=== PATIENT | male | born 1955 | race Caucasian/White ===

== ENCOUNTER 2016-07-24 08:15 | Inpatient (IN) | payer OTHER ==
[2016-07-02 12:43] VITALS: BMI 28.0
--- NOTE | 2016-07-02 13:05 | PAT Medication Instructions ---
Service Date Jul 02, 2016. Current Home Medication List Acetaminophen (Tylenol), 650 MG PO PRN PRN Cholecalciferol (Vitamin D), 1,000 INTER.UNIT PO QAM Ibuprofen (Motrin), 600 MG PO Q6H PRN for Pain Melatonin (Melatonin Maximum Strengt), 1 TAB PO HS Oxymetazoline Hcl (Afrin 0.05% Nasal Tobias), 1 BTL NA HS Tramadol (Ultram), 50 MG PO Q8H PRN for Pain Medication Instructions For Your Scheduled Surgery Ibuprofen (Motrin), 600 MG PO Q6H PRN for Pain (check with surgeon for instructions) - Hold the following medications the morning of surgery: Cholecalciferol (Vitamin D), 1,000 INTER.UNIT PO QAM Acetaminophen (Tylenol), 650 MG PO PRN PRN - Take the following medications the morning of surgery with a sip of water: Tramadol (Ultram), 50 MG PO Q8H PRN for Pain (okay to take up to 4 hours prior to surgery if needed) - Take the following medications as scheduled the night before surgery: Oxymetazoline Hcl (Afrin 0.05% Nasal Tobias), 1 BTL NA HS Melatonin (Melatonin Maximum Strengt), 1 TAB PO HS Acetaminophen (Tylenol), 650 MG PO PRN PRN Tramadol (Ultram), 50 MG PO Q8H PRN for Pain If you have any questions please call us at [phone] (Madonna Goldsmith PA-C) or [phone] or [phone]
[2016-07-02 13:26] LABS: BASO % 0.6 %; BASO ABS # 0.03 K/uL (0-0.2); COMPLETE YES; HEMATOCRIT 40.4 % (42-52); IG% 0.4 %; LYMPH % 29.1 %; LYMPH ABS # 1.58 K/uL (1.2-3.4); MEAN CELL VOLUME 88.8 fL (80-100); MEAN CORPUSCULAR HEMOGLOBIN 31.2 pg (25-34); MEAN CORPUSCULAR HGB CONC 35.1 g/dl (32-36); MEAN PLATELET VOLUME 9.3 fL (7.4-10.4); MONO % 6.3 %; NEUT % 61.6 %; PLATELET COUNT 222 K/uL (130-400); RED BLOOD COUNT 4.55 M/uL (4.7-6.1); WHITE BLOOD COUNT 5.43 K/uL (4.8-10.8)
[2016-07-02 13:37] LABS: PROTHROMBIN TIME (PATIENT) 10.4 SECONDS (9.0-12.0)
[2016-07-02 13:50] LABS: BUN/CREATININE RATIO 17.5 (10-20); CALCIUM 8.8 mg/dl (8.5-10.1); CREATININE 0.81 mg/dl (0.60-1.40); POTASSIUM 3.9 mmol/L (3.5-5.1)
[2016-07-03 05:46] LABS: ESTIMATED AVERAGE GLUCOSE 105 mg/dl; HA1C FLAG Normal (Normal)
--- NOTE | 2016-07-23 13:30 | HISTORY & PHYSICAL EXAMINATION ---
DATE OF ADMISSION: 07/24/2016 CHIEF COMPLAINT: Right hip pain. HISTORY OF PRESENT ILLNESS: The patient is a 60-year-old male with known osteoarthritis about his right hip. He had a previous successful left total hip arthroplasty approximately 6 years ago. He now has ongoing pain and disability with the right hip. He has pain with prolonged weightbearing and standing activities. He has difficulty with any kneeling, bending, or squatting activities. He now desires to proceed with right total hip arthroplasty. PAST MEDICAL HISTORY: Denies. PAST SURGICAL HISTORY: Left hip as above, bilateral carpal tunnel release. MEDICATIONS: None. ALLERGIES: CODEINE WHICH CAUSES ITCHING. SOCIAL HISTORY: He states a [id number] smoking history. REVIEW OF SYSTEMS: Noncontributory. PHYSICAL EXAMINATION: GENERAL: Well-nourished, well-developed elderly male who appears stated age. HEAD, EYES, EARS, NOSE, AND THROAT: Normocephalic, atraumatic, extraocular movements intact. Oropharynx pink and moist. NECK: Supple without adenopathy. LUNGS: Clear to auscultation bilaterally. HEART: Regular rate and rhythm. ABDOMEN: Soft, nontender, nondistended. EXTREMITIES: The upper extremity within normal limits. The right hip demonstrates limited range of motion. There is limitation of active and passive internal/external rotation with pain at end range. X-RAYS: X-rays were reviewed. He has severe osteoarthritis about the right hip with complete loss of the joint space. There is osteophyte formation about the femoral head and acetabulum. There is deformation of the femoral head. ASSESSMENT: Right hip degenerative joint disease. PLAN: Risks versus benefits were discussed. Consent was obtained. The patient's primary care physician is Dr. Khoury from the [facility]. Will proceed with right total hip arthroplasty upon preoperative workup and medical clearance. ARTURO
[2016-07-24] VITALS (8 sets, daily range): BP systolic 109–144; BP diastolic 52–78; PULSE 62–80; TEMP 36.3–37.1; O2SAT 90–98; Ht 185.4 cm; Wt 97.6 kg
[~2016-07-24] VITALS: Ht 185.4 cm; Wt 97.6 kg
[~2016-07-24 08:15] MED LIST: ACET-1311 PO; ACETAMINOPHEN 500 MG TAB PO SCH; AFRINWC; BUPIVACAINE 0.5 % 5 MG/1 ML PF 10ML VIAL ONE; CEFAZOLIN 2000 MG/60 ML D5W 60 ML IV SCH; CHOL100010 PO; CeleBREX 200 MG CAP PO SCH; DEXAMETHASONE 4 MG TAB PO SCH; GABAPENTIN 300 MG CAP PO SCH; IBUP600T44 PO; LACTATED RINGER'S 1000ML IV SCH; MELATAB2 PO; METOCLOPRAMIDE HCL 10 MG TAB PO SCH; ROPIVACAINE 5MG/ML 30 ML 150 MG, BUPIVACAINE/EPINEPHR 0.5% MPF 30 ML, KETOROLAC TROMETH... INFIL SCH; TRAM-10 PO
[2016-07-24] MEDS ORDERED: NCDT21X TOP (08:37)
--- NOTE | 2016-07-24 08:51 | History & Physical Bridge Note ---
H&P Re-Evaluation Bridge Note: I have examined the patient, reviewed the History & Physical and in the interval since the performance of the History & Physical I have noted the following changes of clinical significance: No changes noted
[2016-07-24] MEDS ORDERED: MEPERIDINE HCL 25 MG/ML CARP IV PRN (09:00)
[2016-07-24] MEDS ORDERED: ONDANSETRON INJ 2 MG/ML 2 ML VIAL IV PRN ×2 (09:00→11:30)
[2016-07-24] MEDS ORDERED: EpHEDrine SULFATE INJ 50 MG/ML AMP IV PRN (09:00)
[2016-07-24] MEDS ORDERED: LABETALOL HCL IV 5 MG/ML 20ML IV PRN (09:00)
[2016-07-24] MEDS ORDERED: FLUMAZENIL 0.1 MG/1 ML 10 ML VIAL IV PRN (09:00)
[2016-07-24] MEDS ORDERED: ATROPINE SULFATE 0.1 MG/ML 5ML SYR IV PRN (09:00)
[2016-07-24] MEDS ORDERED: NALOXONE HCL 0.4 MG/1 ML VIAL/CARP IV PRN (09:00)
[2016-07-24] MEDS ORDERED: PHENYLEPHRINE 100MCG/ML 5ML SYR IV PRN (09:00)
[2016-07-24] MEDS ORDERED: FENTANYL CITRATE INJ 50 MCG/1 ML 2 ML VIAL IV PRN (09:00)
[2016-07-24] MEDS ORDERED: MIDAZOLAM HCL 1 MG/ML 2ML VIAL ONE (09:08)
[2016-07-24] MEDS ORDERED: PROPOFOL IV EMULSION 10 MG/ML 20 ML VIAL IV ONE (09:08)
[2016-07-24] MEDS ORDERED: LIDOCAINE HCL 2% 2 ML VIAL (20MG/ML) ONE (09:08)
[2016-07-24] MEDS ORDERED: POVIDONE-IODINE OP SOLN 30 ML BTL ONE (09:31)
[2016-07-24] MEDS ORDERED: BACITRACIN 50000 UNIT VIAL ONE (09:31)
[2016-07-24] MEDS ORDERED: EpHEDrine SULFATE 50MG/5ML SYR ONE (10:03)
--- NOTE | 2016-07-24 10:47 | [facility] Post Operative Brief Note ---
Immediate Operative Summary Operative Date Jul 24, 2016. Pre-Operative Diagnosis Right Hip Degenerative Joint Disease Post-Operative Diagnosis Same as Preop Procedure(s) Performed Right Total Hip Arthroplasty Uncemented Surgeon Dr. Pimentel Care Technician Surgeon(s) Randell Gutiérrez PA-C Estimated Blood Loss 100cc Findings severe oa Specimens A. Right Femoral Head Disposition Recovery Room / PACU
--- NOTE | 2016-07-24 10:55 | OPERATIVE REPORT ---
DATE OF OPERATION: 07/24/2016 PREOPERATIVE DIAGNOSIS: Osteoarthritis right hip. POSTOPERATIVE DIAGNOSIS: Osteoarthritis right hip. PROCEDURE: Right total hip arthroplasty. SURGEON: Dr. Pimentel. EXTRUDER TENDER: Randell Gutiérrez PA-C. ANESTHESIA: Spinal. COMPLICATIONS: None. OPERATION AND FINDINGS: PROCEDURE: Following induction of adequate spinal anesthesia, the patient was placed in left lateral decubitus position and right Reyna-Langenbeck incision was made. Subcutaneous tissue was sharply dissected. Electrocautery used for hemostasis. The fascia was incised throughout the length of the wound and a bourne scissor placed beneath the short external rotators. The pyriformis was tagged with #1 Vicryl. The short external rotators were divided from the posterior aspect of the femur using electrocautery. These were swept posteriorly. A T-capsulotomy incision was made and the hip was dislocated using a combination of flexion, adduction, and internal rotation. Exposure of the femoral neck with old-style Hohmann and a blunt Hohmann was carried out and a femoral rasp was utilized as a guide for making the appropriate level femoral neck cut. This bone fragment was removed and reserved on the back table. Next, attention was turned to the acetabulum where bone hook was used to retract the femur while the offset retractors were placed anterior and posteriorly. A double-angled Hohmann was placed in superior and anterior position exposing the acetabulum nicely. Acetabular labrum as well as posterior capsule elements were removed using a long knife and a long pickup. Fovea centralis was cleared of all soft tissue. Sequential reamings were carried up to a size 58 and decision was made to proceed with impaction of a 58 trabecular metal cup. This was impacted and held using a single 35 mm bone screw. The acetabular liner was placed with 15 of elevated posterior wall in the superior and posterior position. Next, attention was turned to the femoral portion of the case where a Bovie and pickup was used to further clear short external rotators from their insertion on the femur. Box osteotome was used to gain access to the femoral canal and the T-handled rasp and a rattail rasp were used to further open and lateral the canal. Sequentially raspings were carried up to a size 6 which gave good fit and fill of the proximal femur. A trial reduction was carried out and 6 offset femoral neck component was chosen as the size to be used. A -5 x 36 mm ceramic femoral head was impacted into position, +0 head was utilized. The trial reduction was stable in all degrees of rotation with no [id number] impingement. The hip was dislocated. The trial components were removed and the final femoral stem, neck, and femoral head combination were assembled on the back table and impacted into position. Hip was relocated. Range of motion checked once again successful and the wound was irrigated. The pyriformis repaired to the greater trochanter using #1 Vicryl [id number] suture. A Hemovac drain was placed and the fascia was closed using #1 Vicryl, subcutaneous tissue was closed using 0 Dexon, and skin was closed with brad. Sterile dressing of Adaptic, 4 x 4's, ABDs, and foam tape was applied. The patient tolerated the procedure well. Recovery room stable. Due to the complex nature of the procedure, the entire surgery was performed with the operational assistance of Randell Gutiérrez PA-C. The bookkeeping assistant, under direct supervision, was involved in the actual performance of all aspects of the surgical procedure including hemostasis, tissue retraction and incision, instrument management, patient positioning, and wound closure. I attest to the content of the Intraoperative Record and any orders documented therein. Any exceptions are noted below. ARTURO
[2016-07-24] MEDS ORDERED: FENTANYL CITRATE INJ 50 MCG/1 ML 2 ML VIAL ONE (11:10)
[2016-07-24] MEDS ORDERED: ALUMINUM/MAGNESIUM/SIMETH (MAALOX MAX) 30 ML UDC PO PRN (11:30)
[2016-07-24] MEDS ORDERED: ZOLPIDEM TARTRATE 5 MG TAB PO PRN (11:30)
[2016-07-24] MEDS ORDERED: MoRPHine SULFATE 2 MG/ML CARP IV PRN (11:30)
[2016-07-24] MEDS ORDERED: BISACODYL 10 MG SUPP PR PRN (11:30)
[2016-07-24] MEDS ORDERED: TAMSULOSIN HCL 0.4 MG CAP PO PRN (11:30)
[2016-07-24] MEDS ORDERED: DiphenhydrAMINE HCL 50 MG/ML VIAL IV PRN (11:30)
[2016-07-24] MEDS ORDERED: TRAMADOL HCL 50 MG TAB PO PRN (11:30)
[2016-07-24] MEDS ORDERED: MAGNESIUM HYDROXIDE SUSP 30 ML UDC PO PRN (11:30)
--- NOTE | 2016-07-24 11:44 | DIAGNOSTIC IMAGING REPORT ---
RIGHT PELVIS/UNILATERAL HIP 1 VIEW CLINICAL HISTORY: IN PACU - A/P PELVIS and LATERAL HIP INCLUDING ALL OF IMPLANT Right postoperative evaluation COMPARISON: None. DISCUSSION: Status post total right hip replacement. Good contact between prosthetic and underlying bone. Pre-existing total left hip prosthetic. Expected soft tissue postoperative change IMPRESSION: Anatomic alignment status post total right hip replacement Electronically signed by: Jesus Gorman M.D. 07/24/2016 11:43 AM Dictated Date/Time: 07/24/2016 11:42 AM
--- NOTE | 2016-07-24 12:03 | Anesthesiology Progress Note ---
Anesthesia Post Op Note Date & Time Jul 24, 2016 at 12:04 Vital Signs Pain Intensity: 0 Vital Signs Past 12 Hours Date Time Temp Pulse Resp B/P Pulse Ox O2 Delivery O2 Flow Rate FiO2 07/24/16 11:55 36.5 60 16 104/61 95 Nasal Cannula 3 07/24/16 11:40 36.5 58 16 105/56 95 Nasal Cannula 3 07/24/16 11:30 56 16 107/58 95 Nasal Cannula 3 07/24/16 11:20 57 16 98/61 95 Nasal Cannula 3 07/24/16 11:18 36.2 59 16 102/69 97 Nasal Cannula 3 07/24/16 08:30 36.9 64 20 123/76 97 Room Air Notes Mental Status: alert / awake / arousable, participated in evaluation Pt Amnestic to Procedure: Yes Nausea / Vomiting: adequately controlled Pain: adequately controlled Airway Patency, RR, SpO2: stable & adequate BP & HR: stable & adequate Hydration State: stable & adequate Neuraxial Anesthesia: was administered, sensory block is resolving Anesthetic Complications: no major complications apparent
[2016-07-24] MEDS ORDERED: MoRPHine SULFATE 4 MG/ML 1 ML CARP\\VIAL IV PRN (12:30)
[2016-07-24] MEDS ORDERED: MoRPHine SULFATE 10 MG/ML CARP/VIAL IV PRN (12:30)
[2016-07-24] MEDS: D5W AND 1/2NSS + 20MEQ KCL 1,000 ML IV SCH ×2 (12:31→21:57)
[2016-07-24] MEDS: TRANEXAMIC ACID INJ 1,000 MG in SODIUM CHLORIDE 0.9% 100ML 100 ML IV SCH ×2 (13:23→13:26)
[2016-07-24] MEDS: FERROUS GLUCONATE 324 MG TAB PO SCH ×2 (13:24→17:22)
[2016-07-24] MEDS: KETOROLAC TROMETHAMINE 30 MG/ML VIAL IV. SCH ×2 (13:25→19:42)
[2016-07-24] MEDS: OXYCODONE HCL IR 5 MG TAB (IMMEDIATE RELEASE) PO PRN (14:21)
[2016-07-24] MEDS: NICOTINE 21 MG/24 HR TDSY TD SCH (15:24)
[2016-07-24] MEDS: ACETAMINOPHEN 500 MG TAB PO SCH ×2 (15:24→21:57)
[2016-07-24] MEDS: CEFAZOLIN IV 2,000 MG in DEXTROSE 5% 50ML 50 ML IV SCH (17:22)
[2016-07-24] MEDS: SENNA 8.6 MG TAB PO SCH (20:46)
[2016-07-24] MEDS: DOCUSATE SODIUM 100 MG CAP PO SCH (20:46)
[2016-07-24] MEDS: ASPIRIN 81 MG ECTAB PO SCH (20:46)
[2016-07-25] VITALS (7 sets, daily range): BP systolic 105–140; BP diastolic 58–78; PULSE 65–88; TEMP 36.5–37.1; O2SAT 95–98
[2016-07-25] MEDS: OXYCODONE HCL IR 5 MG TAB (IMMEDIATE RELEASE) PO PRN ×3 (00:02→19:28)
[2016-07-25] MEDS: CEFAZOLIN IV 2,000 MG in DEXTROSE 5% 50ML 50 ML IV SCH (02:45)
[2016-07-25] MEDS: KETOROLAC TROMETHAMINE 30 MG/ML VIAL IV. SCH ×2 (02:45→08:06)
[2016-07-25] MEDS ORDERED: TRANEXAMIC ACID INJ 1,000 MG in SODIUM CHLORIDE 0.9% 100ML 100 ML IV SCH (06:00)
[2016-07-25] MEDS: ACETAMINOPHEN 500 MG TAB PO SCH ×3 (06:04→21:21)
[2016-07-25 06:10] LABS: BASO % 0.1 %; BASO ABS # 0.01 K/uL (0-0.2); COMPLETE YES; EOS % 0.3 %; HEMATOCRIT 34.4 % (42-52); IG% 0.3 %; LYMPH % 12.1 %; LYMPH ABS # 1.35 K/uL (1.2-3.4); MEAN CELL VOLUME 89.6 fL (80-100); MEAN CORPUSCULAR HEMOGLOBIN 30.7 pg (25-34); MEAN CORPUSCULAR HGB CONC 34.3 g/dl (32-36); MEAN PLATELET VOLUME 9.7 fL (7.4-10.4); MONO % 7.2 %; PLATELET COUNT 197 K/uL (130-400); RED BLOOD COUNT 3.84 M/uL (4.7-6.1); WHITE BLOOD COUNT 11.19 K/uL (4.8-10.8)
[2016-07-25 06:35] LABS: BUN/CREATININE RATIO 16.6 (10-20); CALCIUM 8.5 mg/dl (8.5-10.1); CREATININE 0.74 mg/dl (0.60-1.40); POTASSIUM 4.3 mmol/L (3.5-5.1)
--- NOTE | 2016-07-25 07:40 | Orthopedic Progress Note ---
Orthopedic Progress Note Date of Service Jul 25, 2016. Subjective Post OP Day: 1 Reports: feeling well, Denies: SOB, calf pain, chest pain, light headedness, nausea / vomiting Objective calves soft nontender, N/V intact, hip located, dressing C/D/I, A&O x3, toes mobile, hemovac drainage (50ml latest shift; 275ml to date) Date Time Temp Pulse Resp B/P Pulse Ox O2 Delivery O2 Flow Rate FiO2 07/25/16 02:50 36.5 88 16 108/58 96 Room Air 07/24/16 23:55 Room Air 07/24/16 22:50 36.3 70 16 117/64 97 Room Air 07/24/16 19:45 Room Air 07/24/16 19:03 37.1 80 20 144/78 96 Room Air 07/24/16 15:09 36.8 66 16 121/70 98 Nasal Cannula 3.0 07/24/16 14:10 36.6 65 17 116/67 98 Nasal Cannula 2.0 07/24/16 13:30 Room Air 07/24/16 13:11 36.9 66 18 119/70 90 Nasal Cannula 3.0 07/24/16 12:40 67 16 127/69 97 Nasal Cannula 3.0 07/24/16 12:10 Nasal Cannula 3.0 07/24/16 12:10 36.4 62 16 109/52 98 Nasal Cannula 3.0 07/24/16 11:55 36.5 60 16 104/61 95 Nasal Cannula 3 07/24/16 11:40 36.5 58 16 105/56 95 Nasal Cannula 3 07/24/16 11:30 56 16 107/58 95 Nasal Cannula 3 07/24/16 11:20 57 16 98/61 95 Nasal Cannula 3 07/24/16 11:18 36.2 59 16 102/69 97 Nasal Cannula 3 07/24/16 08:30 36.9 64 20 123/76 97 Room Air Laboratory Results 24 Hours: Test 07/25/16 05:46 White Blood Count 11.19 K/uL Red Blood Count 3.84 M/uL Hemoglobin 11.8 g/dL Hematocrit 34.4 % Mean Corpuscular Volume 89.6 fL Mean Corpuscular Hemoglobin 30.7 pg Mean Corpuscular Hemoglobin Concent 34.3 g/dl Platelet Count 197 K/uL Mean Platelet Volume 9.7 fL Neutrophils (%) (Auto) 80.0 % Lymphocytes (%) (Auto) 12.1 % Monocytes (%) (Auto) 7.2 % Eosinophils (%) (Auto) 0.3 % Basophils (%) (Auto) 0.1 % Neutrophils # (Auto) 8.96 K/uL Lymphocytes # (Auto) 1.35 K/uL Monocytes # (Auto) 0.81 K/uL Eosinophils # (Auto) 0.03 K/uL Basophils # (Auto) 0.01 K/uL Assessment & Plan Assessment: POD 1 s/p Right COURTNEY Plan: PT/OT Planning for DC to home tomorrow Inhouse Planning Pain Management: Toradol, Ultram, Morphine, PO Tylenol, Oxy IR DVT Prophylaxis: TEDs, SCDs, ASA
--- NOTE | 2016-07-25 07:57 | Anesthesiology Progress Note ---
Anesthesia Post Op Note Date & Time Jul 25, 2016 at 07:57 Vital Signs Pain Intensity: 6.0 Vital Signs Past 12 Hours Date Time Temp Pulse Resp B/P Pulse Ox O2 Delivery O2 Flow Rate FiO2 07/25/16 02:50 36.5 88 16 108/58 96 Room Air 07/24/16 23:55 Room Air 07/24/16 22:50 36.3 70 16 117/64 97 Room Air Notes Mental Status: alert / awake / arousable, participated in evaluation Pt Amnestic to Procedure: Yes Nausea / Vomiting: adequately controlled Pain: adequately controlled Airway Patency, RR, SpO2: stable & adequate BP & HR: stable & adequate Hydration State: stable & adequate Neuraxial Anesthesia: sensory block resolved Anesthetic Complications: no major complications apparent
[2016-07-25] MEDS: FERROUS GLUCONATE 324 MG TAB PO SCH ×3 (08:04→17:55)
[2016-07-25] MEDS: MULTIVITAMIN TAB PO SCH (08:04)
[2016-07-25] MEDS: ASPIRIN 81 MG ECTAB PO SCH ×2 (08:04→21:20)
[2016-07-25] MEDS: DOCUSATE SODIUM 100 MG CAP PO SCH ×2 (08:04→21:20)
[2016-07-25] MEDS: NICOTINE 21 MG/24 HR TDSY TD SCH (08:05)
[2016-07-25] MEDS: PANTOprazole SOD 40 MG TAB PO SCH (08:06)
[2016-07-25] MEDS: D5W AND 1/2NSS + 20MEQ KCL 1,000 ML IV SCH (08:06)
[2016-07-25] MEDS: SENNA 8.6 MG TAB PO SCH (21:20)
[2016-07-26] MEDS: OXYCODONE HCL IR 5 MG TAB (IMMEDIATE RELEASE) PO PRN ×3 (00:04→10:46)
[2016-07-26 03:15] VITALS: BP 118/72; PULSE 65; TEMP 36.8; O2SAT 97
[2016-07-26] MEDS: ACETAMINOPHEN 500 MG TAB PO SCH (05:51)
[2016-07-26 07:00] VITALS: BP 118/65; PULSE 77; TEMP 36.7; O2SAT 96
[2016-07-26 07:50] VITALS: BP 126/78; PULSE 72; TEMP 37.2; O2SAT 96
[2016-07-26] MEDS: ASPIRIN 81 MG ECTAB PO SCH (08:05)
[2016-07-26] MEDS: DOCUSATE SODIUM 100 MG CAP PO SCH (08:05)
[2016-07-26] MEDS: PANTOprazole SOD 40 MG TAB PO SCH (08:05)
[2016-07-26] MEDS: MULTIVITAMIN TAB PO SCH (08:05)
[2016-07-26] MEDS: FERROUS GLUCONATE 324 MG TAB PO SCH ×2 (08:05→11:59)
[2016-07-26] MEDS: NICOTINE 21 MG/24 HR TDSY TD SCH (08:06)
[2016-07-26 09:08] VITALS: O2SAT 96
--- NOTE | 2016-07-26 10:03 | Orthopedic Progress Note ---
Orthopedic Progress Note Date of Service Jul 26, 2016. Subjective Post OP Day: 2 Reports: feeling well, pain controlled w PO medications, Denies: SOB, calf pain , chest pain, complaints, light headedness, nausea / vomiting Objective calves soft nontender, N/V intact, hip located, capillary refill less than 2 sec., dressing C/D/I (Silverlon dressing in place. Clean and dry.), A&O x3, toes mobile Date Time Temp Pulse Resp B/P Pulse Ox O2 Delivery O2 Flow Rate FiO2 07/26/16 09:08 96 Room Air 07/26/16 07:50 37.2 72 16 126/78 96 Room Air 07/26/16 07:10 Room Air 07/26/16 07:00 36.7 77 18 118/65 96 Room Air 07/26/16 03:15 36.8 65 18 118/72 97 Room Air 07/25/16 23:55 Room Air 07/25/16 23:02 36.8 65 17 105/61 96 Room Air 07/25/16 20:19 36.9 69 16 128/73 95 Room Air 07/25/16 16:20 Room Air 07/25/16 15:04 37.1 69 16 119/72 98 Room Air 07/25/16 11:58 36.5 70 16 140/78 97 Room Air Assessment & Plan Assessment: POD 2 s/p Right COURTNEY Plan: PT/OT Planning for DC to home today Inhouse Planning Pain Management: Toradol, Ultram, Morphine, PO Tylenol, Oxy IR DVT Prophylaxis: TEDs, SCDs, ASA Discharge Planning Discharge Planning: home with home health Pain Management: Oxycontin, PO Tylenol, Oxy IR DVT Prophylaxis: TEDs, ASA
[2016-07-26] MEDS ORDERED: CLB200 PO (10:07)
[2016-07-26] MEDS ORDERED: ACET-1138 PO (10:07)
[2016-07-26] MEDS ORDERED: ASPEC81 PO (10:07)
[2016-07-26] MEDS ORDERED: OXYSR10 PO (10:07)
[2016-07-26] MEDS ORDERED: ONDA8TAB6 PO (10:07)
[2016-07-26] MEDS ORDERED: RXC5 PO (10:07)
--- NOTE | 2016-07-26 10:09 | Discharge Instructions ---
Discharge Instructions Date of Service Jul 26, 2016. Admission Reason for Admission: Right Hip Osteoarthritis Discharge Discharge Diagnosis / Problem: right hip osteoarthritis Discharge Goals Goal(s): Decrease discomfort, Improve function Activity Recommendations Activity Limitations: as noted below Lifting Limitations: until after follow-up appointment Exercise/Sports Limitations: until after follow-up appointment May Resume Sexual Activity: when tolerated Shower/Bathe: keep incision dry (Keep Silverlon in place for 7 days) Driving or Machine Use: When cleared by Dr. Pimentel's office. Weightbearing Status: Right weightbearing (as tolerated) . Instructions / Follow-Up Instructions / Follow-Up ACTIVITY RECOMMENDATIONS: SELF CARE INSTRUCTIONS AFTER TOTAL HIP REPLACEMENT Until the incision and soft tissues around your hip have healed, there is a possibility that the hip prosthesis could dislocate. A. Observe the following precautions to prevent dislocation: 1. Don't bend your hip greater than 90 degrees. 2. Avoid crossing your legs or ankles while standing or lying. 3. Sit with your feet placed 6 inches apart. 4. When sitting, keep your knees below your hips. Sit on a firm surface, avoid deep, soft chairs and couches. Use an elevated toilet seat in the bathroom. 5. Don't bend over at the waist. Use a long handled shoehorn and a sock aid to help you put on your shoes and socks. A pigment pumper can help you pickling machine operator objects that are too high or too low to reach. 6. Keep car riding to a minimum for at least one month after surgery. B. Your balance may be shaky for a while. Use crutches or a walker until directed by your doctor. C. Use hand rails when walking on stairs. D. Wear low heeled shoes with non-slip soles. E. Be sure that your floors are free of things that could trip you - throw rugs , electrical cords, small objects. Avoid wet and waxed floors, especially with crutches and canes. F. Try to walk several times a day with rest periods between. G. Continue with all the exercises taught to you in the hospital. Again, make walking a part of your daily routine. H. It is okay to shower if minimal to no drainage from incision. No baths. Do not soak wound. I. Physical Therapy as instructed by your Physician. Chad Allan- This is a large adhesive bandage that contains silver ions. This helps your incision heal by fighting off bacteria and protecting it from the outside environment. You are permitted to shower with this dressing. This will remain on your incision for 7 days and then should be removed. Some visible blood or drainage through the dressing window is normal. If there is significant drainage or leaking noted before the 7 days notify your doctor's office immediately. Once removed, keep incision clean and dry. If there is any drainage or redness noted, please call your surgeon. SPECIAL CARE INSTRUCTIONS: VERY IMPORTANT TO READ AND REVIEW A. You may still be at risk for phlebitis and blood clots. 1. Wear surgical stockings (BIBIANA hose) for one month, 20 hours daily, after surgery to improve circulation and reduce swelling. 2. Take Coumadin, Xarelto, Lovenox or Aspirin (blood thinning medications), as directed by your doctor. 3. Have a pro-time (blood test) drawn according to your doctor's instructions. B. We encourage and will assist you in choosing a home-health agency of your choice. Home health nurses and therapists will monitor your temperature, wound healing and progress in exercise and walking. Home health nurses may also draw the blood for the pro-time test. They may instruct you in decreasing or increasing the amount of Coumadin you take. C. You must take antibiotics before having dental work, bladder, bowel and other surgery. Your doctor will provide you with a permanent card to carry describing precautions. D. Call [facility] if you have a temperature of 101 or greater, redness or swelling around the incision, cloudy drainage from incision, or sudden increase in pain in your hip, not relieved by your regular pain medication. E. Please call the office at if you have any concerns or questions about your operation or recovery. FOLLOW UP VISIT: If appointment is not already scheduled: Please call [facility] to make a follow-up appointment for one month after your surgery at . Current Hospital Diet Patient's current hospital diet: Regular Diet Discharge Diet Recommended Diet: Regular Diet Procedures Procedures Performed: Right Total Hip Arthroplasty Uncemented Pending Studies Studies pending at discharge: no Laboratory Results Hemoglobin A1c Test 07/02/16 13:14 Range/Units Estimated Average Glucose 105 mg/dl Hemoglobin A1c 5.3 4.5-5.6 % Medical Emergencies . Who to Call and When: Medical Emergencies: If at any time you feel your situation is an emergency, please call 911 immediately. . Non-Emergent Contact Non-Emergency issues call your: Surgeon Call Non-Emergent contact if: temperature is above 101, your pain is not controlled, your pain is worsening, wound has increased drainage, wound has increased redness, wound has increased pain . "Provider Documentation" section prepared by Murphy Gregorio. VTE Core Measure Inpt VTE Proph given/why not?: Other Anticoagulation (Aspirin 81 mg every 12 hours for 30 days), T.E.D. Stockings
[2016-07-26 11:49] VITALS: BP 122/78; PULSE 77; TEMP 36.7; O2SAT 96
--- NOTE | 2016-07-30 10:54 | DISCHARGE SUMMARY ---
DISCHARGE DIAGNOSIS: Degenerative joint disease, right hip. CONSULTS: None. COMPLICATIONS: None. PROCEDURES: Right total hip arthroplasty performed by Dr. Pimentel on 07/24/2016. BRIEF HISTORY: As dictated in history and physical. HOSPITAL SUMMARY: The patient was admitted on the above-noted date and had the above-noted surgery performed which he tolerated well. On the first postoperative day, he was feeling well and had no complaints. Calves were soft, nontender. Neurovascularly intact. Hip was located. Dressings clean, dry and intact. Toes were mobile. He was started on physical therapy protocol and continued on DVT prophylaxis and pain management. Vital signs were stable. He was afebrile. Hemoglobin was 11.8. By his second postoperative day, he was feeling well, pain was controlled, and calves were soft and nontender. Dressings clean, dry and intact. Toes were mobile. Neurovascular intact. Hip was located. Vital signs were stable. He was afebrile. He was progressing well with his physical therapy and it was felt he could be discharged to home. For further review, please see chart. LABORATORY AND X-RAY DATA: As per chart. DISCHARGE INSTRUCTIONS: The patient was discharged to home in satisfactory condition on 07/26/2016. DIET: Regular. ACTIVITY: Weightbearing as tolerated right lower extremity. Follow COURTNEY instruction sheets and special care instructions as noted. Follow up with Dr. Pimentel in 2 weeks. The patient to call for appointment if one has not been made for you. DISCHARGE MEDICATIONS: Acetaminophen 1000 mg p.o. q. 8 hours, aspirin 81 mg p.o. b.i.d., Celebrex 200 mg p.o. q. 12 hours, Zofran 8 mg p.o. q. 8 hours p.r.n., oxycodone 5-10 mg p.o. q. 4 hours p.r.n., OxyContin 10 mg p.o. q.12 hours. Resume taking vitamin D 1000 International Units p.o. q.a.m., melatonin 1 tab p.o. at bedtime, nicotine patch 1 patch daily 21 mg, Afrin 0.05% nasal spray p.r.n. Stop taking 650 mg dose of acetaminophen. Stop taking ibuprofen and tramadol.
== END 2016-07-26 13:09 | disposition home health service (06) | DRG 470 ==
LOC: ENRESERVDT → ENRESERVTM → C.ACU 08:15 → C.3E 11:27
PROC: 0SR903Z Replacement of Right Hip Joint with Ceramic Synthetic Substitute, Open Approach (ICD-10-PCS; principal; 2016-07-24 10:00)
DX: M16.11 Unilateral primary osteoarthritis, right hip (principal); F17.210 Nicotine dependence, cigarettes, uncomplicated

== ENCOUNTER 2016-10-31 13:32 | Emergency (ER) | payer OTHER ==
[~2016-10-31] VITALS: Ht 185.4 cm; Wt 95.3 kg
[~2016-10-31 13:32] MED LIST changes: +ACET-1138 PO; -ACET-1311 PO; -ACETAMINOPHEN 500 MG TAB PO SCH; +ASPEC81 PO; -BUPIVACAINE 0.5 % 5 MG/1 ML PF 10ML VIAL ONE; -CEFAZOLIN 2000 MG/60 ML D5W 60 ML IV SCH; +CLB200 PO; -CeleBREX 200 MG CAP PO SCH; -DEXAMETHASONE 4 MG TAB PO SCH; -GABAPENTIN 300 MG CAP PO SCH; -IBUP600T44 PO; -LACTATED RINGER'S 1000ML IV SCH; -METOCLOPRAMIDE HCL 10 MG TAB PO SCH; +NCDT21X TOP; +ONDA8TAB6 PO; +OXYSR10 PO; -ROPIVACAINE 5MG/ML 30 ML 150 MG, BUPIVACAINE/EPINEPHR 0.5% MPF 30 ML, KETOROLAC TROMETH... INFIL SCH; +RXC5 PO; -TRAM-10 PO
[2016-10-31 13:33] VITALS: TEMP 36.8; Ht 185.4 cm; Wt 95.3 kg
[2016-10-31] MEDS ORDERED: XYLOCAINE 1%/SOD BICARB 20 ML VIAL INFIL ONE (13:42)
[2016-10-31] MEDS ORDERED: DIPHTHERIA/TETANUS/PERTUSSIS 0.5 ML SYR/VIAL IM. ONE (13:45)
[2016-10-31] MEDS ORDERED: NICO1DIS7 TOP (13:51)
[2016-10-31] MEDS ORDERED: CHOL100027 PO (13:51)
--- NOTE | 2016-10-31 14:14 | DIAGNOSTIC IMAGING REPORT ---
LEFT HAND MIN 3 VIEWS ROUTINE CLINICAL HISTORY: Left hand laceration from either salt. COMPARISON: None. DISCUSSION: The examination is limited from a technical standpoint. There is a fracture through the tuft of the distal phalanx the fifth finger. No additional fractures are visualized. There are degenerative changes most pronounced the level of the first carpal metacarpal joint. IMPRESSION: 1. Technically limited study from a positioning standpoint 2. Fracture involving the tuft of the distal phalanx of the fifth finger. Electronically signed by: Berto Mahoney M.D. 10/31/2016 2:13 PM Dictated Date/Time: 10/31/2016 2:10 PM
[2016-10-31 15:09] VITALS: BP 123/83; PULSE 60; O2SAT 96
[2016-10-31] MEDS ORDERED: CEPH500C PO (15:24)
--- NOTE | 2016-10-31 15:24 | EMERGENCY ROOM VISIT NOTE ---
ED Visit Note First contact with patient: 13:36 CHIEF COMPLAINT: Hand laceration HISTORY OF PRESENT ILLNESS: This 61-year-old male patient presents to the emergency department ambulatory after cutting the left hand when he was using a miter saw at home just prior to arrival. The bleeding has stopped. Denies weakness or numbness of the hand or fingers. The patient denies any pain. The patient denies any other injuries. The patient's Tetanus shot is not up to date. REVIEW OF SYSTEMS: A 6 system review of systems was completed with positives and pertinent negatives listed in the HPI. ALLERGIES: Chlorhexidine, codeine MEDICATIONS: See nursing notes PMH: Is denies SOCIAL HISTORY: The patient lives locally. PHYSICAL EXAM: Vital Signs: Reviewed Nurse's notes, vital signs stable. GENERAL : This is a 61-year-old male, in no acute distress, well-developed, well- nourished. SKIN: There is a 5 cm long laceration on the dorsal aspect of the ulnar side of the left hand. The edges gape apart with traction. There is no foreign material in the wound and it looks clean. There is no active bleeding. No deep structures such as tendons, bones, or nerves are seen in the base of the wound. Normal strength and movement of the fingers and wrist. Capillary refill less than 2 seconds. Normal sensation to light and sharp touch. EMERGENCY DEPARTMENT COURSE: I examined the patient. He was given tetanus immunization. An x-ray was obtained. There is a left fifth distal phalanx tuft fracture. The patient has no pain or swelling in this area today. He states that over the winter he injured his finger and that may have been when the fracture occurred. He was never seen for that injury. Using sterile technique the wound was cleaned with Betadine. The area was sterilely draped. 5 ml of 1% buffered lidocaine was used to anesthetize the laceration on the hand. Once the patient was numb, the wound was copiously irrigated under pressure with sterile saline. The wound was explored and was as described above. While irrigating and cleaning, the wound began to bleed heavily. 1 6-0 fast absorbing simple interrupted suture was placed to ligate the bleeding vessel. The wound was explored in a bloodless field. There was involvement of the extensor tendon which appeared to be more of a balbina than a true laceration. The laceration was repaired using 6 simple interrupted 4-0 nylon sutures with the wound edges being well approximated. The patient tolerated the procedure well. The bleeding stopped. The area was cleaned with sterile saline and dressed with bacitracin ointment and bandage. The patient was given Td immunization. The patient was discharged home in good condition. I discussed the case with Dr. Still who can see the patient in the office in [place] on Thursday or [place] on Thursday. He was placed in a volar Ortho-Glass splint by the emergency department construction equipment technician and the position was satisfactory. Neurovascular status was intact. He'll be placed on Keflex. DIAGNOSIS: Hand laceration DISCHARGE INSTRUCTIONS & TREATMENT: Keep wound clean and dry. Do not allow any crusting or dried blood to accumulate on sutures. If this occurs, use a 1:1 solution of hydrogen peroxide/water on a Q-tip to clean the wound. Use an antibiotic ointment for 3-4 days, then let wound dry. Suture removal in 10-12 days. Return sooner for any signs of infection (increasing redness, swelling, drainage). Ice and elevate for swelling and pain. Ibuprofen 600 mg g every 6 hrs for pain. Keep covered when in sun until sutures removed then SPF 50 or higher for one year. Vitamin E oil if desired two weeks after suture removal for reduction of scar. Wear the splint until seen by orthopedics. Do not get the splint wet. Keflex as prescribed, until finished to help prevent infection Contact orthopedics for a follow-up appointment on Thursday with Dr. Still Return with any worsening pain, swelling, fevers, drainage of pus. LEFT HAND MIN 3 VIEWS ROUTINE CLINICAL HISTORY: Left hand laceration from either salt. COMPARISON: None. DISCUSSION: The examination is limited from a technical standpoint. There is a fracture through the tuft of the distal phalanx the fifth finger. No additional fractures are visualized. There are degenerative changes most pronounced the level of the first carpal metacarpal joint. IMPRESSION: 1. Technically limited study from a positioning standpoint 2. Fracture involving the tuft of the distal phalanx of the fifth finger. Problem List Medical Problems: (1) Diverticulosis Status: Chronic Current/Historical Medications Scheduled Acetaminophen (Tylenol Extra Strength), 1,000 MG PO Q8 Cephalexin Monohydrate (Keflex), 500 MG PO QID Cholecalciferol (Vitamin D 1000 Unit), 1,000 INTER.UNIT PO DAILY Melatonin (Melatonin Maximum Strengt), 1 TAB PO HS Nicotine (Nicotine Step 1), 1 PATCH TOP DAILY Oxymetazoline Hcl (Afrin 0.05% Nasal [place]), 1 BTL NA HS Allergies Coded Allergies: Chlorhexidine (Verified Allergy, Intermediate, red itchy rash, 10/31/16) Codeine (Verified Allergy, Mild, ITCHING, 10/31/16) Vital Signs Date Time Temp Pulse Resp B/P (MAP) Pulse Ox O2 Delivery O2 Flow Rate FiO2 10/31/16 15:09 60 16 123/83 96 Room Air 10/31/16 13:33 36.8 74 22 140/75 97 Room Air Medications Administered Medications (Trade) Dose Ordered Sig/Elpidio Route Start Time Stop Time Status Last Admin Dose Admin Diphtheria/ Pertussis/Tetanus Vacc (Adacel Inj) 0.5 ml ONCE ONCE IM. 10/31/16 13:45 10/31/16 13:46 DC 10/31/16 14:19 0.5 ML Departure Information Impression Primary Impression: Hand laceration involving tendon Dispostion Home / Self-Care Condition GOOD Prescriptions Cephalexin Monohydrate (Keflex) 500 Mg Cap 500 MG PO QID for 7 Days, #28 CAP Prov: Emilia Vergara PA-C 10/31/16 Referrals Jeaneth WillCDidiR.N.P. (PCP) Daljit Still MD Patient Instructions ED Laceration Hand, [facility] Additional Instructions Keep wound clean and dry. Do not allow any crusting or dried blood to accumulate on sutures. If this occurs, use a 1:1 solution of hydrogen peroxide/ water on a Q-tip to clean the wound. Use an antibiotic ointment for 3-4 days, then let wound dry. Suture removal in 10-12 days. Return sooner for any signs of infection (increasing redness, swelling, drainage). Ice and elevate for swelling and pain. Ibuprofen 600 mg g every 6 hrs for pain. Keep covered when in sun until sutures removed then SPF 50 or higher for one year. Vitamin E oil if desired two weeks after suture removal for reduction of scar. Wear the splint until seen by orthopedics. Do not get the splint wet. Keflex as prescribed, until finished to help prevent infection Contact orthopedics for a follow-up appointment on Thursday with Dr. Still Return with any worsening pain, swelling, fevers, drainage of pus. Problem Qualifiers Primary Impression: Hand laceration involving tendon Encounter type: initial encounter Laterality: left Qualified Codes: S61.412A - Laceration without foreign body of left hand, initial encounter; S66.922A - Laceration of unspecified muscle, fascia and tendon at wrist and hand level, left hand, initial encounter
== END 2016-10-31 15:41 | disposition home or self-care (01) ==
LOC: C.EDB 13:33 → C.EDD 15:41
DX: S61.412A Laceration without foreign body of left hand, initial encounter (principal); S66.922A Laceration of unspecified muscle, fascia and tendon at wrist and hand level, left hand, initial encounter; W31.2XXA Contact with powered woodworking and forming machines, initial encounter; Y92.019 Unspecified place in single-family (private) house as the place of occurrence of the external cause; K57.90 Diverticulosis of intestine, part unspecified, without perforation or abscess without bleeding; Z79.899 Other long term (current) drug therapy

== ENCOUNTER 2018-05-27 22:12 | Observation (INO) ==
[2018-05-27] MEDS ORDERED: DIAZEPAM 5 MG/ML INJ 10ML VIAL ONE (22:21)
[2018-05-27] MEDS ORDERED: MECLIZINE HCL 25 MG TAB PO STA (22:22)
[2018-05-27] MEDS ORDERED: diazePAM INJ 5 MG/ML 2 ML CARP IV ONE (22:22)
[2018-05-27] MEDS ORDERED: SODIUM CHLORIDE 0.9% 1000ML 2,000 ML IV SCH (22:30)
[2018-05-27 22:37] LABS: Basophils # (auto) 0.01 K/uL (0-0.2); Basophils % (auto) 0.1 %; Eosinophils # (auto) 0.01 K/uL (0-0.5); Eosinophils % (auto) 0.1 %; Hematocrit (blood only) 44.1 % (42-52); Hemoglobin 15.7 g/dL (14.0-18.0); Immature Granulocytes # (auto) 0.03 K/uL (0.00-0.02); Immature Granulocytes % (auto) 0.3 %; Lymphocytes # (auto) 1.03 K/uL (1.2-3.4); Lymphocytes % (auto) 11.6 %; Mean Corpuscular Hgb Conc 35.6 g/dL (32-36); Mean Corpuscular Volume 88.6 fL (80-100); Mean Platelet Volume 9.6 fL (7.4-10.4); Monocytes # (auto) 0.29 K/uL (0.11-0.59); Monocytes % (auto) 3.3 %; Neutrophils # (auto) 7.51 K/uL (1.4-6.5); Neutrophils % (auto) 84.6 %; Platelet Count 255 K/uL (130-400); RDW Coefficient of Variation 12.8 % (11.5-14.5); RDW Standard Deviation 40.9 fL (36.4-46.3); Red Blood Count 4.98 M/uL (4.7-6.1); White Blood Count 8.88 K/uL (4.8-10.8)
[2018-05-27 22:54] LABS: Alanine Aminotransferase 25 U/L (12-78); Albumin Level 4.3 gm/dl (3.4-5.0); Aspartate Aminotransferase 18 U/L (15-37); BUN Creatinine Ratio 15.9 (10-20); Blood Urea Nitrogen 13 mg/dl (7-18); Calcium 9.2 mg/dl (8.5-10.1); Carbon Dioxide 22 mmol/L (21-32); Chloride 102 mmol/L (98-107); Creatinine Clr Calc Pharmacy 100.4 ml/min; Est GFR (African American) 107.2; Est GFR (Non-African American) 92.5; Glucose 154 mg/dl (70-99); Potassium 3.5 mmol/L (3.5-5.1); Prothrombin Time 10.5 Seconds (9.0-12.0); Sodium 134 mmol/L (136-145)
--- NOTE | 2018-05-27 22:56 | CT Scan Report ---
CT head/brain wo con CLINICAL HISTORY: dizzy COMPARISON STUDY: No previous studies for comparison. TECHNIQUE: Axial CT of the brain is performed from the vertex to the skull base. IV contrast was not administered for this examination. A dose lowering technique was utilized adhering to the principles of ALARA. CT DOSE: 614.27 mGy.cm FINDINGS: No intra or extra-axial mass lesions are visualized. There is no CT evidence of acute cortical infarc tion. There is no evidence of midline shift. There is no acute hemorrhage. No calvarial fractures ar e visualized. There are minimal white matter hypodensities likely on a small vessel basis. There is no evidence of pathologic ventricular dilatation. There is no evidence of acute sinusitis IMPRESSION: No acute intracranial findings Electronically signed by: Berto Mahoney M.D. 05/27/2018 10:55 PM
[2018-05-27 22:59] LABS: Albumin Globulin Ratio 1.2 (0.9-2); Alkaline Phosphatase 74 U/L (45-117); Bilirubin,Total 0.6 mg/dl (0.2-1); Globulin 3.5 gm/dl (2.5-4.0); Total Protein 7.8 gm/dl (6.4-8.2); Troponin I < 0.015 ng/ml (0-0.045)
--- NOTE | 2018-05-28 00:18 | Emergency Department Note ---
Entered by Lelo Sawyer acting as a scribe for Ryan Santiago DO History of Present Illness General Chief complaint: Nausea Source: patient History of Present Illness Onset (ago): hour(s) (several) Location: head Pain Consistency: + other (persistent) Quality: + other (dizziness) Exacerbated By: + other (laying down) Associated symptoms: + nausea/vomiting, + weakness and + other (negative abdominal pain; negative urinary symptoms; negative change of vision; negative ringing in his ears ); no chest pain and no headaches Treatments prior to arrival: other (Zofran ) The patient is a 62 year old male who presents to the Emergency Room with complaints of persistent dizziness that began several hours prior to arrival. The patient states that he felt as though the room was spinning. He states that his dizziness is exacerbated with laying down. The patient states that he then began to feel nauseous and vomited 4 times. The patient states that he feels weak all over. The patient denies abdominal pain, chest pain, urinary symptoms, headache, change of vision, and ringing in his ears. The patient states that he received Zofran from EMS prior to arrival. No other exacerbating or remitting factors. Home Medications Home Medications Medication Instructions Recorded Confirmed Type Unobtainable 05/27/18 05/27/18 History Allergies Allergy/AdvReac Type Severity Reaction Status Date / Time chlorhexidine Allergy Intermediate red itchy Verified 05/27/18 22:31 rash codeine Allergy Mild ITCHING Verified 05/27/18 22:31 Past Med/Surg History Medical History Diverticulosis (Chronic) Family History Other No significant family history Social History Feels Safe at Home: Yes Smoking Status: Current every day smoker Review of Systems See HPI for pertinent positives & negatives. and A total of 10 systems reviewed and were otherwise negative Physical Exam Vital Signs Vital Signs - 24 hr 05/27/18 22:21 05/27/18 22:32 05/27/18 22:41 Temperature 36.3 C L Temperature Source Oral Sepsis Recent Fever Within 48 Hours No Sepsis New/Unexplained Change in Mental Status No Sepsis Action Taken by Nursing No Action Required Pulse Rate 57 L Pulse Rate [Right Finger] 63 Pulse Rhythm Regular Pulse Rhythm [Right Finger] Pulse Strength Normal Pulse Strength [Right Finger] Respiratory Rate 18 16 Respiratory Effort / Characteristics Non-Labored Spontaneous Non-Labored Spontaneous Respiratory Depth Normal Normal Respiratory Pattern Regular Blood Pressure 156/91 H Blood Pressure [Right Arm] 122/83 Blood Pressure Mean 112 Blood Pressure Mean [Right Arm] 96 Blood Pressure Position Sitting Blood Pressure Position [Right Arm] Sitting Pulse Oximetry 97 94 98 Oxygen Delivery Method Room Air Nasal Cannula Room Air Oxygen Flow Rate 3 3 05/27/18 23:00 05/27/18 23:57 Temperature Temperature Source Sepsis Recent Fever Within 48 Hours Sepsis New/Unexplained Change in Mental Status Sepsis Action Taken by Nursing Pulse Rate Pulse Rate [Right Finger] 58 L 77 Pulse Rhythm Pulse Rhythm [Right Finger] Regular Regular Pulse Strength Pulse Strength [Right Finger] Normal Normal Respiratory Rate 16 18 Respiratory Effort / Characteristics Non-Labored Spontaneous Non-Labored Spontaneous Respiratory Depth Normal Normal Respiratory Pattern Regular Blood Pressure Blood Pressure [Right Arm] 134/76 144/83 H Blood Pressure Mean Blood Pressure Mean [Right Arm] 95 103 Blood Pressure Position Blood Pressure Position [Right Arm] Lying Pulse Oximetry 98 95 Oxygen Delivery Method Nasal Cannula Room Air Oxygen Flow Rate 3 GENERAL: Sitting up in bed, alert, well appearing, well nourished, no distress, non-toxic. Disheveled. EYE EXAM: normal conjunctiva. PERRL and EOM's intact. With rightward gaze, leftward nystagmus. OROPHARYNX: no exudate, no erythema, lips, buccal mucosa, and tongue normal and mucous membranes are moist NECK: supple, no nuchal rigidity, no adenopathy, non-tender LUNGS: Clear to auscultation. Normal chest wall mechanics HEART: no murmurs, S1 normal and S2 normal ABDOMEN: abdomen soft, non-tender, normo-active bowel, sounds, no masses, no rebound or guarding. BACK: Back is symmetrical on inspection and there is no deformity, no midline tenderness, no CVA tenderness. SKIN: no rashes and no bruising UPPER EXTREMITIES: upper extremities are grossly normal. LOWER EXTREMITIES: No pitting edema. NEURO EXAM: Normal sensorium, cranial nerves II-XII intact, normal speech, no weakness of arms, no weakness of legs. No drift. Finger to nose intact. Gross sensation intact. Course ED COURSE: Vital signs were reviewed and showed hypertension The patients medical record was reviewed The above diagnostic studies were performed and reviewed. ED treatments and interventions as stated above. 2216: The patient was evaluated in room C2B. A complete history and physical examination was performed. 2354: Upon reevaluation, the patient is resting. I discussed my findings with the patient and he understands and agrees with the treatment plan. The patient ambulated with difficulty. He was walking very unsteady and needed an assist. 2359: I discussed the case with Dr. Elam Hospitalist who will further evaluate the patient. Based on the patients age, coexisting illnesses, exam and lab findings the decision to treat as an inpatient was made. The patient remained stable while under my care. The patient will be evaluated for further management. Administered Medications Sodium Chloride (Nss 1000ml) 2,000 mls @ 999 mls/hr IV .Q2H1M JAMES Stop: 05/28/18 00:30 Last Admin: 05/27/18 22:32 Dose: 999 mls/hr Discontinued Medications Diazepam (Valium) Confirm Administered Dose 5 mg .ROUTE .STK-MED ONE Stop: 05/27/18 22:22 Last Admin: 05/27/18 22:23 Dose: 2.5 mg Diazepam (Valium) 2.5 mg IV NOW ONE Stop: 05/27/18 22:23 Last Admin: 05/27/18 22:27 Dose: Not Given Meclizine HCl (Antivert) 25 mg PO NOW STA Stop: 05/27/18 22:23 Last Admin: 05/27/18 22:41 Dose: 25 mg Medical Decision Making Differential Diagnosis Differential diagnosis includes etiologies such as benign positional vertigo, dehydration, hypovolemia, anemia, tumor, infection, hypoglycemia, electrolyte abnormalities, cardiac sources, intracerebral event, toxicologic, neurologic, as well as others were entertained. Medical Records Attestation: I reviewed the patient's medical records. Home Medications Current Medication List: was personally reviewed by me Laboratory Data Attestation: I reviewed the patient's lab results. Result diagrams: 05/27/18 21:58 05/27/18 21:58 Lab Results 05/27/18 05/27/18 05/27/18 Range/Units 21:58 21:58 21:58 WBC 8.88 (4.8-10.8) K/uL RBC 4.98 (4.7-6.1) M/uL Hgb 15.7 (14.0-18.0) g/dL Hct 44.1 (42-52) % MCV 88.6 (80-100) fL MCH 31.5 (25-34) pg MCHC 35.6 (32-36) g/dL RDW Std Deviation 40.9 (36.4-46.3) fL RDW Coeff of Shannan 12.8 (11.5-14.5) % Plt Count 255 (130-400) K/uL MPV 9.6 (7.4-10.4) fL Immature Gran % (Auto) 0.3 % Neut % (Auto) 84.6 % Lymph % (Auto) 11.6 % Curry % (Auto) 3.3 % Eos % (Auto) 0.1 % Baso % (Auto) 0.1 % Immature Gran # (Auto) 0.03 H (0.00-0.02) K/uL Neut # (Auto) 7.51 H (1.4-6.5) K/uL Lymph # (Auto) 1.03 L (1.2-3.4) K/uL Curry # (Auto) 0.29 (0.11-0.59) K/uL Eos # (Auto) 0.01 (0-0.5) K/uL Baso # (Auto) 0.01 (0-0.2) K/uL PT 10.5 (9.0-12.0) Seconds INR 1.0 (0.9-1.1) Sodium 134 L (136-145) mmol/L Potassium 3.5 (3.5-5.1) mmol/L Chloride 102 (98-107) mmol/L Carbon Dioxide 22 (21-32) mmol/L Anion Gap 10.0 (3-11) BUN 13 (7-18) mg/dl Creatinine 0.84 (0.6-1.4) mg/dl Est Cr Clr Drug Dosing 100.4 ml/min Est GFR ( Amer) 107.2 Est GFR (Non-Af Amer) 92.5 BUN/Creatinine Ratio 15.9 (10-20) Glucose 154 H (70-99) mg/dl Calcium 9.2 (8.5-10.1) mg/dl Total Bilirubin 0.6 (0.2-1) mg/dl AST 18 (15-37) U/L ALT 25 (12-78) U/L Alkaline Phosphatase 74 (45-117) U/L Troponin I < 0.015 (0-0.045) ng/ml Total Protein 7.8 (6.4-8.2) gm/dl Albumin 4.3 (3.4-5.0) gm/dl Globulin 3.5 (2.5-4.0) gm/dl Albumin/Globulin Ratio 1.2 (0.9-2) Imaging Data Radiologist's Impression: Radiology results as stated below per my review and the radiologist's interpretation: CT head/brain wo con CLINICAL HISTORY: dizzy COMPARISON STUDY: No previous studies for comparison. TECHNIQUE: Axial CT of the brain is performed from the vertex to the skull base. IV contrast was not administered for this examination. A dose lowering technique was utilized adhering to the principles of ALARA. CT DOSE: 614.27 mGy.cm FINDINGS: No intra or extra-axial mass lesions are visualized. There is no CT evidence of acute cortical infarction. There is no evidence of midline shift. There is no acute hemorrhage. No calvarial fractures are visualized. There are minimal white matter hypodensities likely on a small vessel basis. There is no evidence of pathologic ventricular dilatation. There is no evidence of acute sinusitis IMPRESSION: No acute intracranial findings Electronically signed by: Berto Mahoney M.D. 05/27/2018 10:55 PM ECG Data Attestation: I personally reviewed and interpreted this ECG as follows: Indication: other (dizziness) Rate (beats per minute): 61 Rhythm: sinus rhythm Findings: + other (normal axis ); no PVC Blood Pressure Blood Pressure Findings: Elevated blood pressure Blood Pressure Disposition: further management by hospitalist SACHA Narrative Patient is a 62-year-old male who presents the ER with dizziness associate with nausea vomiting. He is unable to keep anything down. He is very unsteady on his gait. This came on suddenly. I received medical command call from EMS on 2 separate occasions. We gave him a total of 2 mg of IV Ativan along with 2 doses of Zofran prior to arrival via EMS. Labs were obtained and CBC along with BMP and INR was unremarkable. Troponin was negative. Along with LFTs. CT of the head was negative. Patient was neurologically intact. He did have a horizontal nystagmus. Based on his presentation I do favor this is likely peripheral in nature. He was given IV Valium while in the ER along with Antivert and fluids. He did have some improvement of symptoms but was still unable to walk. Patient was updated bedside. Discussed with hospitalist as he felt uncomfortable and cannot ambulate I do believe that this likely warrants observation. Impression & Plan Vertigo Discharge Plan Visit Data Chief Complaint: Nausea ED Provider: Ryan Santiago Discharge Problem: Vertigo Patient Disposition: Being Evaluated by Hospitalist Forms Stand Alone Forms: [facility] Prescriptions Prescriptions: No Action Unobtainable RF: 0 Referrals Referrals: Suzi Clancy PADawsonC [Primary Care Provider] - The scribe's documentation has been prepared under my direction and personally reviewed by me in its entirety. I confirm that the note above accurately reflects all work, treatment, procedures, and medical decision making performed by me.
[2018-05-28] MEDS ORDERED: NITROGLYCERIN SL 0.4 MG/TAB TAB SL PRN (02:10)
[2018-05-28] MEDS ORDERED: ONDANSETRON INJ 2 MG/ML 2 ML VIAL IV PRN (02:10)
[2018-05-28] MEDS ORDERED: SODIUM CHLORIDE 0.9% 1000ML 1,000 ML IV SCH (02:10)
[2018-05-28] MEDS ORDERED: MECLIZINE HCL 25 MG TAB PO PRN (02:10)
[2018-05-28] MEDS ORDERED: ACETAMINOPHEN 325 MG TAB PO PRN (02:10)
--- NOTE | 2018-05-28 04:04 | History and Physical Report ---
DATE OF ADMISSION: 05/28/2018 CHIEF COMPLAINT: Nausea, vomiting, and vertigo. HISTORY OF PRESENT ILLNESS: This is a 52-year-old male with no significant past medical history and not on any medications at home. Follows with the [facility], presents with nausea, vomiting, and vertigo. The patient says yesterday around 4 p.m., he was working in the yard with his . He suddenly felt nausea, vomited several times then felt weak. Then after that he started feeling room spinning, vertigo, and some imbalance so he came to the ER. In the ER, he was given Valium, meclizine. His vertigo was slightly improved, but still is not able to ambulate so we were called for admission. Currently resting comfortably, hemodynamically stable. He says he still has some room spinning but nausea is improved. Denies any fever, chills, no cough, no headaches, no blurred visions, no earache, no runny nose, no sore throat, no difficulty swallowing. Appetite is okay. No recent weight gain or weight loss. No night sweats. Speech is okay. Ambulates okay. Otherwise, no abdominal pain, normal bowel and bladder movements. ALLERGIES: CHLORHEXIDINE, CODEINE. PAST MEDICAL HISTORY: None. PAST SURGICAL HISTORY: Bilateral carpal tunnel surgery, bilateral hip replacement, vasectomy, trigger thumb surgery. MEDICATIONS: None. FAMILY HISTORY: Mother of dementia and father of diabetic complications. SOCIAL HISTORY: Lives with his . Smokes half pack a day for many years. No alcohol use, no drug use. REVIEW OF SYMPTOMS: As per HPI. Rest of review of symptoms negative. PHYSICAL EXAMINATION: GENERAL: The patient is of moderate built, not in acute distress. VITAL SIGNS: Temperature 36.3, pulse 77, respiratory rate 18, blood pressure 144/83, oxygen 95% on room air. HEENT: No pallor, no icterus. Pupils equal, round, and reactive to light. Eyes Horizontal nystagmus present. NECK: No JVD, no neck masses, no carotid bruits. CARDIOVASCULAR: S1, S2 heard, regular rate and rhythm, no murmur, no gallop. RESPIRATORY SYSTEM: Clear to auscultation bilaterally. No wheezing, no crackles. ABDOMEN: Soft, bowel sounds present. Nontender. No distention. CENTRAL NERVOUS SYSTEM: Cranial nerves II-XII grossly intact. Nonfocal. EXTREMITIES: No edema, no erythema. LABORATORY: WBC 8.8, hemoglobin 15.7, hematocrit 44.1, platelets 255. PT 10.5, INR 1. Sodium 134, potassium 3.5, chloride 102, bicarb 22, BUN 13, creatinine 0.8, serum glucose 154, calcium 9.2, total bilirubin 0.6, AST of 18, ALT 24, alkaline phosphatase 74, troponin I less than 0.015. CT of the head, no acute intracranial findings. EKG: Sinus rhythm with first degree AV block with rate of 60, no acute ST changes seen. ASSESSMENT AND PLAN: This is a 62-year-old male who presents with nausea, vomiting, and vertigo. 1. Nausea, vomiting, and vertigo. Still has some horizontal nystagmus, still feeling somewhat room spinning. Received Valium and meclizine in the ER. CT of the head was unremarkable. Will observe in the tele floor and will do MRI of the head to rule out any central cause. Continue meclizine p.r.n., IV fluids, check for orthostatics. PT, OT evaluation and neurology consulted for further recommendations. 2. Deep venous thrombosis prophylaxis, sequential compression devices for now. DISPOSITION: Observe in tele floor. Expect to discharge home and follow with family doctor. Level I full code. MTDD
[2018-05-28] MEDS ORDERED: INFLUENZA ADMINISTRATION CHARGE ONE (07:15)
[2018-05-28] MEDS ORDERED: INFLUENZA VIRUS QUAD VACCINE 0.5 ML SYR IM ONE (07:15)
[2018-05-28 07:57] LABS: Basophils # (auto) 0.01 K/uL (0-0.2); Basophils % (auto) 0.2 %; Eosinophils # (auto) 0.02 K/uL (0-0.5); Eosinophils % (auto) 0.3 %; Hematocrit (blood only) 41.7 % (42-52); Hemoglobin 14.4 g/dL (14.0-18.0); Immature Granulocytes # (auto) 0.03 K/uL (0.00-0.02); Immature Granulocytes % (auto) 0.5 %; Lymphocytes # (auto) 1.51 K/uL (1.2-3.4); Lymphocytes % (auto) 23.1 %; Mean Corpuscular Hgb Conc 34.5 g/dL (32-36); Mean Corpuscular Volume 89.9 fL (80-100); Mean Platelet Volume 9.4 fL (7.4-10.4); Monocytes # (auto) 0.44 K/uL (0.11-0.59); Monocytes % (auto) 6.7 %; Neutrophils # (auto) 4.53 K/uL (1.4-6.5); Neutrophils % (auto) 69.2 %; Platelet Count 238 K/uL (130-400); RDW Coefficient of Variation 12.9 % (11.5-14.5); RDW Standard Deviation 42.1 fL (36.4-46.3); Red Blood Count 4.64 M/uL (4.7-6.1); White Blood Count 6.54 K/uL (4.8-10.8)
[2018-05-28 09:26] LABS: BUN Creatinine Ratio 14.8 (10-20); Calcium 8.2 mg/dl (8.5-10.1); Creatinine Clr Calc Pharmacy 138.3 ml/min; Est GFR (African American) 122.3; Est GFR (Non-African American) 105.5; Magnesium 2.2 mg/dl (1.8-2.4); Potassium 3.6 mmol/L (3.5-5.1)
--- NOTE | 2018-05-28 11:49 | XRay Report ---
XR orbits for MRI HISTORY: MRI pre-MRI screening. COMPARISON: None. FINDINGS: There are no radiopaque foreign bodies identified within the orbits. IMPRESSION: No radiopaque foreign bodies identified within the orbits. The above report was generated using voice recognition software. It may contain grammatical, syntax or spelling errors. Electronically signed by: Jesus Gorman M.D. 05/28/2018 11:48 AM
[2018-05-28] MEDS ORDERED: GADOBUTROL 65ML VIAL IV PRN (13:07)
--- NOTE | 2018-05-28 13:22 | Magnetic Resonance Report ---
MRI OF THE BRAIN WITHOUT AND WITH IV CONTRAST CLINICAL HISTORY: VERTIGO/IMBALANCE COMPARISON STUDY: Noncontrast head CT dated 05/27/2018 TECHNIQUE: MRI of the brain was performed from the vertex to the skull base utilizing various T1 and T2 weighted sequences. Following the IV administration of 9 mL of Gadavist contrast, additional enhan herson images were obtained. FINDINGS: Sagittal T1, axial diffusion, proton density and T2 weighted axial, coronal FLAIR, and pre and post a xial T1-weighted images were acquired. These were supplemented with post gadolinium coronal T1 weight ed images. No intra or extra-axial mass lesions are visualized. Axial diffusion-weighted images reveal no evidence of acute or subacute infarction. There is no evidence of ventricular dilatation. Proton density T2-weighted and FLAIR images reveal scattered foci of increased T2 signal within the w karine matter, likely on a small vessel basis. There are no abnormal flow voids. There is no evidence of pathologic enhancement. There is a 7 mm left preauricular cyst. IMPRESSION: 1. No acute intracranial findings 2. No evidence of acute or subacute infarction 3. No evidence of intracranial mass 4. Minor scattered foci of increased T2 signal, likely on a small vessel basis Electronically signed by: Berto Mahoney M.D. 05/28/2018 1:21 PM
--- NOTE | 2018-05-28 14:51 | Neurology Consultation ---
Date of Consultation May 28, 2018 Possible Acute Vestibular syndrome Disequilibrium N/V A 62-year-old male admitted with possible acute vestibular syndrome. Likely peripheral in etiology. History of tinnitus and hearing loss. MRI brain reviewed and negative for acute stroke. Neurology consulted for further recommendation. - Neuro examine non focal. Symptoms improved and patient reports feeling much better. No appendicular ataxia on examine or nystagmus. MRI reviewed and is negative for acute stroke. - Ok to discharge from Neurology standpoint if safe from PT/OT standpoint. - Can give script for Phenergan 25 mg BID for Nausea or motion sickness if needed. Patient can follow up with PCP. Please call me with any further questions. History of Present Illness Attending Physician: Moose Miramontes MD A 62 year old male with history of smoking admitted from the ED for acute N/V, abdominal pain, asthenia, and dysequilibirum. He denies focal weakness or vertigo. Has history of tinnitus and hearing loss. Denies history of DE or stroke. He is a chronic smoker and smokes 1/2 pack per day. He is not on any medicaitons at home. He reports feeling better today. He states he was up walking today. Just completed MRI brain. He states yesterday he felt like he was going to pass out. Allergies Allergy/AdvReac Type Severity Reaction Status Date / Time chlorhexidine Allergy Intermediate red itchy Verified 05/27/18 22:31 rash codeine Allergy Mild ITCHING Verified 05/27/18 22:31 Home Medications Home Medications Medication Instructions Recorded Confirmed Type Unobtainable 05/27/18 05/27/18 History Patient History Medical History Diverticulosis (Chronic) Family History Other No significant family history Social History Current Living Situation: Spouse Other Information That Helps Us Care for You: No Feels Safe at Home: Yes Safety Concerns: Feels Safe At This Time Smoking Status: Current every day smoker Tobacco Type: cigarettes Cigarettes per Day: 10 Do You Dip or Chew Tobacco: No Second Hand Exposure: No Tobacco Cessation Education Requested by Patient: No Hx Alcohol Use: No Beliefs That Will Affect Care: None Preferred Language: Andorran Communication Ability: Effective Casting Repairer Required: No Physical Exam 2 Vital Signs (Past 24 Hours): Last Vital Signs Temp 36.6 C 05/28/18 08:03 Pulse 72 05/28/18 08:03 Resp 20 05/28/18 08:03 BP 144/70 H 05/28/18 08:03 Pulse Ox 95 05/28/18 11:40 Physical Exam: EXAM: Constitutional: appearance normally developed, well nourished and non-obese Head and Face: normocephalic and atraumatic Eyes: normal lids, normal conjunctiva Neck: supple Respiratory: normal effort Cardiovascular: regular rhythm and normal pulses Abdomen: non distended Skin: no rashes, lesions, or ulcers noted Psychiatric: normal judgement and insight, normal mood and normal affect NEUROLOGIC EXAMINATION: Appearance: no acute distress Orientation: awake, alert and oriented x 3 Mental Status: alert Memory: registration 3 and recall 3/3 Attention: normal Knowledge: appropriate Language: no aphasia Speech: no dysarthria Cranial Nerves: CN 2 - no visual defect on confrontation and pupils round, equal CN 3, 4, 6 - extra-ocular movements intact and no nystagmus CN 5 - facial sensation intact CN 7 - no facial asymmetry CN 8 - intact hearing CN 9, 10 - palate symmetric CN 11 - good shoulder shrug CN 12 - tongue midline Gait: deferred Coordination: no ataxia with finger to nose testing and heel to worrell testing Sensory: intact to light touch, no graphesia, no extinction Muscle Tone: normal Muscle exam: No focal weakness noted, 5/5 in upper and lower extremities distally Reflexes: No ankle clonus, mcneil Negative Results & Data Diagnostic Findings MRI brain w/o reviewed. No acute intracranial process.
[2018-05-28] MEDS ORDERED: PROMETHAZINE HCL 25 MG TAB PO PRN (16:40)
--- NOTE | 2018-05-28 16:48 | Hospitalist Progress Note ---
Date of Service May 28, 2018 Assessment & Plan (1) Vertigo: 62 year old male who presents to the Emergency Room with complaints of persistent dizziness that began several hours prior to arrival. The patient states that he felt as though the room was spinning. He states that his dizziness is exacerbated with laying down. The patient states that he then began to feel nauseous and vomited 4 times. The patient states that he feels weak all over. The patient denies abdominal pain, chest pain, urinary symptoms, headache, change of vision, and ringing in his ears. The patient states that he received Zofran from EMS prior to arrival. No other exacerbating or remitting factors. Vertigo/Non intractable vomiting with nausea -Neurology service evaluated for possible acute vestibular syndrome. -Likely peripheral in etiology. History of tinnitus and hearing loss. MRI brain reviewed and negative for acute stroke -current Neurology examine non focal - MRI reviewed and is negative for acute stroke. -patient completed PT/OT and baseline function -Neurology service recommend prescription script for Phenergan 25 mg BID for Nausea or motion sickness if needed. -patient received antiemetics while in the hospital -Patient was monitored on telemetry while in the hospital and has been in sinus rhythm with some premature ventricular contractions (PVCs) -Patient should follow up with primary care doctor in the [facility] system. Recommend that patient be monitored with holter monitoring as outpatient at the discretion of his primary care doctor Subjective Patient has been evaluated throughout the day and no symptoms of malaise. Has denied today any sensation of upset stomach, pain, or light headedness or dizziness. Patient has been ambulatory. No nygstagmus during exam Physical Exam 2 Vital Signs (Past 24 Hours): Last Vital Signs Temp 36.7 C 05/28/18 15:00 Pulse 70 05/28/18 15:00 Resp 18 05/28/18 15:00 BP 133/74 05/28/18 15:00 Pulse Ox 97 05/28/18 15:00 Constitutional: WD/WN, vitals as above Eyes: PERRL, conjunctivae normal, anicteric sclerae ENMT: external ear and nose normal, oropharynx normal Neck: trachea midline, no thyromegaly Respiratory: normal respiratory effort, lungs clear to auscultation Cardiovascular: RRR, no murmur, no edema Chest (Breasts): normal inspection/palpation of breasts Gastrointestinal (Abdomen): normal bowel sounds, soft, nontender, no hepatosplenomegaly Musculoskeletal: no cyanosis or clubbing, extremities motor strength 5/5 Head/Neck/Chest: normocephalic and head atraumatic Neurologic: PERRL, EOMI, accommodation nl, no face palsy, no dysarthria CN' s II-XI intact bilaterally Psychiatric: A+Ox3, euthymic affect
--- NOTE | 2018-05-28 17:00 | Discharge Summary ---
Date of Service May 28, 2018 Admission HPI Per Admitting Provider CHIEF COMPLAINT: Nausea, vomiting, and vertigo. HISTORY OF PRESENT ILLNESS: This is a 52-year-old male with no significant past medical history and not on any medications at home. Follows with the [facility], presents with nausea, vomiting, and vertigo. The patient says yesterday around 4 p.m., he was working in the yard with his . He suddenly felt nausea, vomited several times then felt weak. Then after that he started feeling room spinning, vertigo, and some imbalance so he came to the ER. In the ER, he was given Valium, meclizine. His vertigo was slightly improved, but still is not able to ambulate so we were called for admission. Currently resting comfortably, hemodynamically stable. He says he still has some room spinning but nausea is improved. Denies any fever, chills, no cough, no headaches, no blurred visions, no earache, no runny nose, no sore throat, no difficulty swallowing. Appetite is okay. No recent weight gain or weight loss. No night sweats. Speech is okay. Ambulates okay. Otherwise, no abdominal pain, normal bowel and bladder movements. ALLERGIES: CHLORHEXIDINE, CODEINE. PAST MEDICAL HISTORY: None. PAST SURGICAL HISTORY: Bilateral carpal tunnel surgery, bilateral hip replacement, vasectomy, trigger thumb surgery. MEDICATIONS: None. FAMILY HISTORY: Mother of dementia and father of diabetic complications. SOCIAL HISTORY: Lives with his . Smokes half pack a day for many years. No alcohol use, no drug use. REVIEW OF SYMPTOMS: As per HPI. Rest of review of symptoms negative. Admission Exam Per Admitting Provider PHYSICAL EXAMINATION: GENERAL: The patient is of moderate built, not in acute distress. VITAL SIGNS: Temperature 36.3, pulse 77, respiratory rate 18, blood pressure 144/83, oxygen 95% on room air. HEENT: No pallor, no icterus. Pupils equal, round, and reactive to light. Eyes Horizontal nystagmus present. NECK: No JVD, no neck masses, no carotid bruits. CARDIOVASCULAR: S1, S2 heard, regular rate and rhythm, no murmur, no gallop. RESPIRATORY SYSTEM: Clear to auscultation bilaterally. No wheezing, no crackles. ABDOMEN: Soft, bowel sounds present. Nontender. No distention. CENTRAL NERVOUS SYSTEM: Cranial nerves II-XII grossly intact. Nonfocal. EXTREMITIES: No edema, no erythema. Principal Diagnosis Vertigo/Non intractable vomiting with nausea, possible acute vestibular syndrome Discharge Exam Constitutional WD/WN, vitals as above Eyes PERRL, conjunctivae normal, anicteric sclerae ENMT external ear and nose normal, oropharynx normal Neck trachea midline, no thyromegaly Respiratory normal respiratory effort, lungs clear to auscultation Cardiovascular RRR, no murmur, no edema Chest (Breasts) normal inspection/palpation of breasts Gastrointestinal (Abdomen) normal bowel sounds, soft, nontender, no hepatosplenomegaly Musculoskeletal no cyanosis or clubbing, extremities motor strength 5/5 Head/Neck/Chest: normocephalic and head atraumatic Neurologic PERRL, EOMI, accommodation nl, no face palsy, no dysarthria CN's II-XI intact bilaterally Psychiatric A+Ox3, euthymic affect Discharge Data Allergies Allergy/AdvReac Type Severity Reaction Status Date / Time chlorhexidine Allergy Intermediate red itchy Verified 05/27/18 22:31 rash codeine Allergy Mild ITCHING Verified 05/27/18 22:31 Consultations 05/27/18 23:58 ED Decision to Admit Stat 05/28/18 08:00 Consult Neurology Routine Ordered Studies 05/27/18 22:22 CT head/brain wo con Stat 05/28/18 02:10 MR brain wo/w con Urgent Hospital Course (1) Vertigo: 62 year old male who presents to the Emergency Room with complaints of persistent dizziness that began several hours prior to arrival. The patient states that he felt as though the room was spinning. He states that his dizziness is exacerbated with laying down. The patient states that he then began to feel nauseous and vomited 4 times. The patient states that he feels weak all over. The patient denies abdominal pain, chest pain, urinary symptoms, headache, change of vision, and ringing in his ears. The patient states that he received Zofran from EMS prior to arrival. No other exacerbating or remitting factors. Vertigo/Non intractable vomiting with nausea -Neurology service evaluated for possible acute vestibular syndrome. -Likely peripheral in etiology. History of tinnitus and hearing loss. MRI brain reviewed and negative for acute stroke -current Neurology examine non focal - MRI reviewed and is negative for acute stroke. -patient completed PT/OT and baseline function -Neurology service recommend prescription script for Phenergan 25 mg BID for Nausea or motion sickness if needed. -patient received antiemetics while in the hospital -Patient was monitored on telemetry while in the hospital and has been in sinus rhythm with some premature ventricular contractions (PVCs) -Patient should follow up with primary care doctor in the [facility] system. Recommend that patient be monitored with holter monitoring as outpatient at the discretion of his primary care doctor Total Time Total Time Spent Total Time Spent (In Minutes): 40 minutes Total Time Includes: Examination of the Patient, Discharge Planning and Medication Reconciliation Discharge Plan Discharge Items Patient Disposition: Home - Self-Care Reason For Visit: N/V,VERTIGO Discharge Diagnosis: Vertigo/Non intractable vomiting with nausea, possible acute vestibular syndrome Condition: Good Discharge Goals: Decrease discomfort Activity: Resume your previous activity Non-emergency contact: Primary Care Provider Call non-emergency contact if: you have any medication questions Diet: Regular Addtl Provider Instructions: Vertigo/Non intractable vomiting with nausea -Neurology service evaluated for possible acute vestibular syndrome. -Likely peripheral in etiology. History of tinnitus and hearing loss. MRI brain reviewed and negative for acute stroke -current Neurology examine non focal - MRI reviewed and is negative for acute stroke. -patient completed PT/OT and baseline function -Neurology service recommend prescription script for Phenergan 25 mg BID for Nausea or motion sickness if needed. -patient received antiemetics while in the hospital -Patient was monitored on telemetry while in the hospital and has been in sinus rhythm with some premature ventricular contractions (PVCs) -Patient should follow up with primary care doctor in the [facility] system. Recommend that patient be monitored with holter monitoring as outpatient at the discretion of his primary care doctor Prescriptions: New promethazine 25 mg Tablet 25 mg PO BID PRN (Reason: motion sickness) 30 Days Qty: 60 RF: 0 Continue Unobtainable RF: 0 Stand-Alone Forms: [employer] Discharge Orders: Discharge Order (Routine); Ordered 05/28/18 Ordered By: Moose Miramontes Admission Data Admit Date/Time: 05/28/18 01:02 Attending Provider: Moose Miramontes Admit Provider: Lucian Shankar Primary Care Provider: Suzi Clancy Other Providers: Lucian Shankar ; Dianne Rodriguez ; Ash Sharma ; Dianne Garg ; Mary Lou Sousa ; Sung Moya ; Guerline Bar Service: Telemetry Medical
== END 2018-05-28 17:48 | disposition home or self-care (01) ==
LOC: ED 22:12 → 2W 22:12 → SUATTDRO 05-28 01:02 → 2W 05-28 01:30

== ENCOUNTER 2024-06-01 17:00 | Observation (INO) ==
[2024-06-01] MEDS ORDERED: MoRPHine SULFATE 4 MG/ML 1 ML CARP\\VIAL IV PRN (17:04)
--- NOTE | 2024-06-01 17:10 | Emergency Department Note ---
Impression & Plan Stroke-like symptom, Ataxia, Nystagmus ED Provider Note NAME: YOSI YANEZ AGE: 68 SEX: M : 1955 ARRIVES VIA: Ambulance INFORMANT: Patient, ED PROVIDER(S): Russell Busby DO CHIEF COMPLAINT: Vomiting HPI: The patient is a 68-year-old male who presented to the emergency department for an evaluation of nausea vomiting. The patient had a rather acute episode this afternoon of abdominal pain nausea vomiting and 1 loose stool. The patient has no sick contacts. He denies having any vertigo symptoms. He has a history of vertigo. The patient denies having any rectal bleeding or chest pain. The patient has not been seen by his doctor but called 911 because of the severity symptoms. The patient was treated with Zofran prior to arrival with some improvement of his nausea. He denies having any back pain dysuria or frequency. ROS: See above HPI for pertinent positives & negatives. A total of 10 systems reviewed and were otherwise negative. PAST MEDICAL HISTORY: See Below PAST SURGICAL HISTORY: See Below FAMILY HISTORY: See Below SOCIAL HISTORY: See Below HOME MEDICATIONS: See Below ALLERGIES: See Below VITALS: See Below PHYSICAL EXAMINATION: GENERAL: The patient is awake and alert. The patient is somewhat anxious appearing. EYES: The conjunctivae are clear. The pupils are round and reactive. EARS, NOSE, MOUTH AND THROAT: The nose is without any evidence of any deformity. NECK: The neck is nontender and supple. RESPIRATORY: Normal respiratory effort is noted there is no evidence of wheezing rhonchi or rales CARDIOVASCULAR: Regular rate and rhythm noted there no murmurs rubs or gallops normal S1 normal S2. GASTROINTESTINAL: The abdomen is mildly distended and diffusely tender. There is no specific guarding or rigidity. MUSCULOSKELETAL/EXTREMITIES: There is no evidence of gross deformity full range of motion is noted in the hips and shoulders. SKIN: There is no obvious evidence of any rash. There are no petechiae, pallor or cyanosis noted. NEUROLOGIC: Patient is awake alert and oriented x3. Sibu-wz-memb was normal. 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 There was no drift in the upper extremities. There was no facial droop. Speech was clear. MEDICAL DECISION MAKING: The patient is a 68-year-old male who presented to the emergency department for an evaluation of nausea and vomiting. The patient initially was felt to be complaining of a GI source for his symptoms. He did complain of discomfort in his abdomen and had reproducible abdominal pain. I reevaluated the patient when he stated that he was having some dizziness. He was found to have nystagmus. He was also having difficulty ambulating and appeared to be experiencing some ataxia. For this reason he was made a stroke alert. I discussed the patient's laboratory and radiographic studies with him. Given his exam he was evaluated by the stroke neurologist. Ultimately the patient was not felt to be a candidate for TNK and he did not wish to have this medication. [facility]. [facility] have agreed to evaluate the patient in the emergency department for further evaluation and likely inpatient workup. Triage Nursing notes reviewed. Prior medical records reviewed Vital Signs: reviewed and remarkable for elevated blood pressure. Differential diagnosis: Gastroenteritis, food borne illness, infections, appendicitis, diverticulitis, inflammatory bowel disease, obstruction, GI bleed, biliary pathology, volvulus, as well as other pathologies. ER treatment provided: See below Diagnostics interpreted by me: ECG: EKG was obtained in the emergency department. My interpretation is sinus bradycardia at 40 bpm. First-degree AV block is noted. There were no PVCs. This was compared to a tracing from December 13, 2018. No changes were noted. Cardiac Monitoring: An order was placed for continuous cardiac monitoring. The monitor shows a rate of 54 bpm with sinus bradycardia. Laboratory studies: As stated above and show below. Imaging studies: See below. Radiographic imaging was reviewed by myself Consultation(s): I discussed this case with Dr. Morin who is on for teleneurology with [facility] [place], [place]. I discussed this case with Rosio who [facility] ED COURSE: The patient started complaining of a slight headache. When I went back into reevaluate him he stated that he was no longer having as much abdominal discomfort but was still noticing significant nausea. He then states that he was also having trouble with his vision. On reevaluation does appear to patient is having some degree of vertigo symptoms. He has nystagmus when looking to the left. He also has some rotatory nystagmus noted. Past Med/Surg History Problem List (Updated 06/01/24 @ 19:28 by Tehira J Walters, COUNTRY DIRECTOR) Gastroenteritis Nystagmus (Acute) Ataxia (Acute) Stroke-like symptom (Acute) Vertigo (Acute) Diverticulosis (Chronic) Colitis (Acute) Degenerative joint disease of left hip Hand laceration (Acute) Hand laceration involving tendon (Acute) Family History Other No significant family history Social History Smoking Status: Current every day smoker Cigarettes Per Day: 10; Second Hand Exposure: No; Do You Dip or Chew Tobacco: No; Hx Alcohol Use: No Preferred Language: Cymraes Communication Ability: Effective Sorting Machine Attendant Required: No Beliefs That Will Affect Care: None Current Living Situation: Spouse Feels Safe at Home: Yes Assistive Devices: None Allergies Allergies Allergy/AdvReac Type Severity Reaction Status Date / Time chlorhexidine Allergy Intermediate red itchy Verified 06/01/24 19:38 rash codeine Allergy Mild ITCHING Verified 06/01/24 19:38 Home Meds Home Medications Medication Instructions Recorded Confirmed L.acid,par,plant,rham-B.anim,bif,brev,inf,long 1 cap PO DAILY 06/01/24 06/01/24 30 billion cell capsule (Probiotic Digestive Health) melatonin 5 mg tablet 5 mg PO HS 06/01/24 06/01/24 Results & Data (ED) Vital Signs Vital Signs - 24 hr 06/01/24 17:03 06/01/24 17:03 06/01/24 17:05 Pulse Rate 44 L Pulse Rate [Apical] 44 L Respiratory Rate 26 H Respiratory Depth Normal Blood Pressure 159/103 H Blood Pressure [Right Arm] 159/103 H Blood Pressure Mean 121 Blood Pressure Mean [Right Arm] 121 Blood Pressure Position Semi-fowlers Blood Pressure Position [Right Arm] Pulse Oximetry 100 Oxygen Delivery Method Room Air Room Air Sepsis Recent Fever Within 48 Hours No Sepsis New/Unexplained Change in Mental Status No Sepsis Action Taken by Nursing No Action Required 06/01/24 17:16 06/01/24 17:37 06/01/24 19:00 Pulse Rate 43 L Pulse Rate [Apical] 57 L 54 L Respiratory Rate 28 H 16 Respiratory Depth Normal Normal Blood Pressure Blood Pressure [Right Arm] 158/90 H 154/85 H Blood Pressure Mean Blood Pressure Mean [Right Arm] 112 108 Blood Pressure Position Blood Pressure Position [Right Arm] Semi-fowlers Semi-fowlers Pulse Oximetry 100 97 Oxygen Delivery Method Room Air Room Air Sepsis Recent Fever Within 48 Hours Sepsis New/Unexplained Change in Mental Status Sepsis Action Taken by Detention Medications Current Medication List: was personally reviewed by me Laboratory Data Attestation: I reviewed the patient's lab results. 06/01/24 17:05 06/01/24 17:59 Lab Results 06/01/24 06/01/24 06/01/24 Range/Units 17:05 17:59 18:00 WBC 6.43 (4.8-10.8) K/ul RBC 4.58 L (4.70-6.10) M/uL Hgb 14.3 (14.0-18.0) g/dl Hct 40.9 L (42.0-52.0) % MCV 89.3 (80.0-100.0) fL MCH 31.2 (25.0-34.0) pg MCHC 35.0 (32.0-36.0) g/dL RDW Std Deviation 40.7 (36.4-46.3) fL RDW Coeff of Shannan 12.5 (11.5-14.5) % Plt Count 224 (130-400) K/uL MPV 9.4 (9.4-12.4) fL Immature Gran % (Auto) 0.6 % Neut % (Auto) 78.3 % Lymph % (Auto) 13.8 % [place] % (Auto) 5.9 % Eos % (Auto) 0.8 % Baso % (Auto) 0.6 % Neut # (Auto) 5.03 (1.40-6.50) K/uL Lymph # (Auto) 0.89 L (1.20-3.40) K/uL [place] # (Auto) 0.38 (0.11-0.59) K/uL Eos # (Auto) 0.05 (0.00-0.50) K/uL Baso # (Auto) 0.04 (0.00-0.20) K/uL Immature Gran # (Auto) 0.04 (0.01-0.20) K/uL Sodium 138 (136-145) mmol/L Potassium 3.6 3.2 L (3.5-5.1) mmol/L Chloride 106 (98-107) mmol/L Carbon Dioxide 19 L (21-32) mmol/L Anion Gap 13 H (3-11) BUN 15 (6-23) mg/dl Creatinine 0.77 (0.6-1.4) mg/dl Est Cr Clr Drug Dosing 100.9 ml/min eGFR 96.31 BUN/Creatinine Ratio 19.5 (10-20) Glucose 174 H (70-99(Fasting)) mg/dl Calcium 9.6 (8.6-10.3) mg/dl Magnesium 1.9 (1.7-2.4) mg/dl Total Bilirubin 0.5 (0.2-1.0) mg/dl AST 20 (13-39) U/L ALT 14 (7-52) U/L Alkaline Phosphatase 66 (34-104) U/L Troponin I High Sens 3.8 (0-20) pg/ml Total Protein 6.8 (6.0-8.3) gm/dl Albumin 4.4 (3.4-5.0) gm/dl Globulin 2.4 L (2.5-4.0) gm/dl Albumin/Globulin Ratio 1.8 (0.9-2) Lipase 11 (11-82) U/L Urine Color Dark Yellow Urine Appearance Clear (Clear) Urine pH 7.0 (4.5-7.5) Ur Specific [place] 1.017 (1.000-1.030) Urine Protein Negative (Negative) Urine Glucose (UA) Negative (Negative) Urine Ketones 1+ H (Negative) Urine Blood Negative (Negative) Urine Nitrite Negative (Negative) Urine Bilirubin Negative (Negative) Urine Urobilinogen Negative (Negative) Ur Leukocyte Esterase Negative (Negative) Administered Medications Potassium Chloride (K Yariel / Wtr) 10 meq in 100 mls @ 100 mls/hr IV Q1H JAMES Stop: 06/01/24 22:44 Last Admin: 06/01/24 19:40 Dose: 100 mls/hr Documented By: REGINA Ondansetron HCl (Ondansetron Inj 2 Mg/Ml 2 Ml Vial) 4 mg IV Q6H PRN PRN Reason: n/v Stop: 07/01/24 19:14 Last Admin: 06/01/24 19:36 Dose: 4 mg Documented By: REGINA Discontinued Medications Sodium Chloride (Nss) 1,000 mls @ 999 mls/hr IV .Q1H1M ONE Stop: 06/01/24 18:04 Last Infusion: 06/01/24 18:04 Dose: 0 mls/hr Documented By: Admin: 06/01/24 17:18 Dose: 999 mls/hr Documented By: REGINA Ioversol (Optiray 320 125ml) 119 ml IV ONCE ONE Stop: 06/01/24 17:48 Last Admin: 06/01/24 17:48 Dose: 119 ml Documented By: FRANC Meclizine HCl (Meclizine Hcl 25 Mg Tab) 25 mg PO NOW STA Stop: 06/01/24 18:20 Last Admin: 06/01/24 18:32 Dose: 25 mg Documented By: REGINA Imaging Data Attestation: I personally reviewed and interpreted this imaging study as follows: My Impression: CT of the brain was obtained in the emergency department. My interpretation is no intracranial hemorrhage or mass effect, final report below. CT of the abdomen and pelvis was obtained. My interpretation is no free air or signs of bowel obstruction, final report below. 1 view chest x-ray was obtained in the emergency department. My interpretation is no free air or definite infiltrate, final report below. Radiologist's Impression: Abdomen/Pelvis CT 06/01/24 17:05 Clinical History: Abdominal pain Technique: Axial computed tomography images were obtained of the abdomen and pelvis after the administration of intravenous contrast. Comparison is made to the prior CT dated 12/12/2015 Findings: The liver is enlarged measuring 21 cm. There is no sign of cirrhosis or significant fatty infiltration. There is a small 8 mm cyst in the inferior right hepatic lobe, increased in size. No liver mass lesion is seen. The portal vein is patent. The gallbladder appears unremarkable. No bile duct dilatation is noted. The spleen is of normal size. No focal splenic lesion is evident. The pancreas appears normal with no sign of acute or chronic pancreatitis and no mass lesion noted. The pancreatic duct is of normal caliber. There is an unchanged 4.2 cm right adrenal nodule and there is an unchanged 3.8 cm left adrenal nodule, likely benign adenomas No definite renal or proximal ureteral calculi are seen on this contrast-enhanced study. There is no hydronephrosis or perinephric stranding. No renal mass lesion is identified. There is a 2.5 cm left renal cyst The aorta is of normal caliber. No abdominal adenopathy is seen. There is a small hiatal hernia. There is no sign of small bowel obstruction. There is diverticulosis without definite diverticulitis. There is apparent mild diffuse wall thickening of the transverse colon, the hepatic flexure of the colon, and the descending colon. No free intraperitoneal fluid or air is identified. No distal ureteral or bladder calculi are seen. No bladder mass lesion is evident. The iliac arteries are of normal caliber. No pelvic adenopathy is noted. There are bilateral vasectomy clips The lungs bases appear clear. There are bilateral hip replacements, resulting in surrounding artifact. There is lumbar scoliosis and degenerative disc disease. No fracture is identified. No focal osseous lesion is seen Impression: 1. Unchanged bilateral adrenal nodules, likely benign adenomas 2. Hepatic and left renal cysts 3. Apparent mild colonic wall thickening, which could be due to infectious colitis or inflammatory bowel disease 4. Small hiatal hernia 5. Hepatomegaly 6. Diverticulosis without definite diverticulitis Electronically signed by Nav Harrison 06-01-2024 6:15 PM Chest X-Ray 06/01/24 17:05 INDICATION: Cough. TECHNIQUE: Frontal radiograph of the chest. COMPARISON: None. FINDINGS: Mild cardiomegaly. Pulmonary vasculature appear within normal limits. Chronic appearing interstitial lung markings. No infiltrate, pleural effusion or pneumothorax. No acute osseous abnormality evident. Moderate degenerative changes in the shoulders. IMPRESSION: No acute cardiopulmonary process. Electronically signed by Jose Antonio Davis 06-01-2024 5:[address] 06/01/24 17:31 Clinical History: Possible stroke Technique: Axial computed tomography images were obtained of the brain without intravenous contrast. Findings: There is mild cerebral atrophy, within expected limits for the patient's age. Areas of decreased attenuation are seen within the periventricular white matter, likely representing chronic small vessel ischemic disease. There is no definite sign of acute or old infarction. No intracranial hemorrhage is evident. No definite mass lesion is seen on this noncontrast examination. There is no midline shift or other form of herniation. No hydrocephalus is seen. No fracture is identified. The orbits and the visualized paranasal sinuses appear unremarkable. The mastoid air cells appear clear. Impression: 1. Cerebral atrophy and chronic small vessel ischemic disease 2. Otherwise unremarkable noncontrast CT of the brain These findings were discussed with Dr Busby at 6:05 PM on 06/01/2024 Electronically signed by Nav Harrison 06-01-2024 6:05 PM Head CTA 06/01/24 17:36 Technique: Axial computed tomography images were obtained of the brain after the administration of intravenous contrast according to the CT angiogram protocol Findings: There is calcified plaque within the cavernous and supraclinoid segments of the internal carotid arteries bilaterally No definite stenosis or aneurysm is seen of the anterior, middle, or posterior cerebral artery circulations. The visualized vertebral arteries and the basilar artery appear unremarkable Impression: No definite stenosis or aneurysm of the intracranial arteries Electronically signed by Nav Harrison 06-01-2024 6:09 PM Neck CTA 06/01/24 17:36 Technique: Axial computed tomography images were obtained of the neck after the administration of intravenous contrast according to the CT angiogram protocol Findings: No stenosis is seen in the common carotid arteries bilaterally. There is plaque within the carotid bulbs bilaterally, with less than 30% diameter narrowing. There is a mild 30-40% diameter stenosis of the proximal left internal carotid artery. No stenosis of the external carotid arteries is seen The vertebral arteries are patent bilaterally with no significant stenosis seen. The visualized thoracic aorta appears unremarkable There is multilevel degenerative disc disease and osteoarthritis of the cervical spine. There is emphysema. There is a 3 mm nodule in the left lung apex Impression: 1. Mild stenosis of the proximal left ICA, with 30-40% diameter narrowing 2. Emphysema and small indeterminate nodule in the left lung apex. A follow-up chest CT could be obtained Electronically signed by Nav Harrison 06-01-2024 6:08 PM Discharge Plan Visit Data Chief Complaint: Illness Stated Complaint: ILLNESS ED Provider: Russell Busby Discharge Problem: Stroke-like symptom, Ataxia, Nystagmus Patient Disposition: Being Evaluated by Hospitalist Prescriptions Prescriptions: No Action melatonin 5 mg Tablet 5 mg PO HS Probiotic Digestive Health 30 billion cell Capsule 1 cap PO DAILY
[2024-06-01] MEDS: SODIUM CHLORIDE 0.9% 1,000 ML IV ONE (17:18)
[2024-06-01 17:25] LABS: Basophils # (auto) 0.04 K/uL (0.00-0.20); Basophils % (auto) 0.6 %; Eosinophils # (auto) 0.05 K/uL (0.00-0.50); Eosinophils % (auto) 0.8 %; Hematocrit (blood only) 40.9 % (42.0-52.0); Hemoglobin 14.3 g/dl (14.0-18.0); Immature Granulocytes # (auto) 0.04 K/uL (0.01-0.20); Immature Granulocytes % (auto) 0.6 %; Lymphocytes # (auto) 0.89 K/uL (1.20-3.40); Lymphocytes % (auto) 13.8 %; Mean Corpuscular Hemoglobin 31.2 pg (25.0-34.0); Mean Corpuscular Volume 89.3 fL (80.0-100.0); Mean Platelet Volume 9.4 fL (9.4-12.4); Monocytes # (auto) 0.38 K/uL (0.11-0.59); Monocytes % (auto) 5.9 %; Neutrophils # (auto) 5.03 K/uL (1.40-6.50); Neutrophils % (auto) 78.3 %; Platelet Count 224 K/uL (130-400); RDW Coefficient of Variation 12.5 % (11.5-14.5); RDW Standard Deviation 40.7 fL (36.4-46.3); Red Blood Count 4.58 M/uL (4.70-6.10); White Blood Count 6.43 K/ul (4.8-10.8)
[2024-06-01 17:44] LABS: Albumin Globulin Ratio 1.8 (0.9-2); Albumin Level 4.4 gm/dl (3.4-5.0); BUN Creatinine Ratio 19.5 (10-20); Bilirubin,Total 0.5 mg/dl (0.2-1.0); Calcium 9.6 mg/dl (8.6-10.3); Creatinine Clr Calc Pharmacy 100.9 ml/min; Globulin 2.4 gm/dl (2.5-4.0); Potassium 3.6 mmol/L (3.5-5.1); Total Protein 6.8 gm/dl (6.0-8.3)
[2024-06-01] MEDS: OPTIRAY 320 125ml IV ONE (17:48)
[2024-06-01 17:50] LABS: Troponin I High Sensitivity 3.8 pg/ml (0-20)
--- NOTE | 2024-06-01 17:51 | XRay Report ---
INDICATION: Cough. TECHNIQUE: Frontal radiograph of the chest. COMPARISON: None. FINDINGS: Mild cardiomegaly. Pulmonary vasculature appear within normal limits. Chronic appearing interstitial lung markings. No infiltrate, pleural effusion or pneumothorax. No acute osseous abnormality evident. Moderate degenerative changes in the shoulders. IMPRESSION: No acute cardiopulmonary process. Electronically signed by Jose Antonio Davis 06-01-2024 5:51 PM
--- NOTE | 2024-06-01 18:05 | CT Scan Report ---
Clinical History: Possible stroke Technique: Axial computed tomography images were obtained of the brain without intravenous contrast. Findings: There is mild cerebral atrophy, within expected limits for the patient's age. Areas of decreased attenuation are seen within the periventricular white matter, likely representing chronic small vessel ischemic disease. There is no definite sign of acute or old infarction. No intracranial hemorrhage is evident. No definite mass lesion is seen on this noncontrast examination. There is no midline shift or other form of herniation. No hydrocephalus is seen. No fracture is identified. The orbits and the visualized paranasal sinuses appear unremarkable. The mastoid air cells appear clear. Impression: 1. Cerebral atrophy and chronic small vessel ischemic disease 2. Otherwise unremarkable noncontrast CT of the brain These findings were discussed with Dr Busby at 6:05 PM on 06/01/2024 Electronically signed by Nav Harrison 06-01-2024 6:05 PM
--- NOTE | 2024-06-01 18:09 | CT Scan Report ---
Technique: Axial computed tomography images were obtained of the neck after the administration of intravenous contrast according to the CT angiogram protocol Findings: No stenosis is seen in the common carotid arteries bilaterally. There is plaque within the carotid bulbs bilaterally, with less than 30% diameter narrowing. There is a mild 30-40% diameter stenosis of the proximal left internal carotid artery. No stenosis of the external carotid arteries is seen The vertebral arteries are patent bilaterally with no significant stenosis seen. The visualized thoracic aorta appears unremarkable There is multilevel degenerative disc disease and osteoarthritis of the cervical spine. There is emphysema. There is a 3 mm nodule in the left lung apex Impression: 1. Mild stenosis of the proximal left ICA, with 30-40% diameter narrowing 2. Emphysema and small indeterminate nodule in the left lung apex. A follow-up chest CT could be obtained Electronically signed by Nav Harrison 06-01-2024 6:08 PM
--- NOTE | 2024-06-01 18:10 | CT Scan Report ---
Technique: Axial computed tomography images were obtained of the brain after the administration of intravenous contrast according to the CT angiogram protocol Findings: There is calcified plaque within the cavernous and supraclinoid segments of the internal carotid arteries bilaterally No definite stenosis or aneurysm is seen of the anterior, middle, or posterior cerebral artery circulations. The visualized vertebral arteries and the basilar artery appear unremarkable Impression: No definite stenosis or aneurysm of the intracranial arteries Electronically signed by Nav Harrison 06-01-2024 6:09 PM
--- NOTE | 2024-06-01 18:16 | CT Scan Report ---
Clinical History: Abdominal pain Technique: Axial computed tomography images were obtained of the abdomen and pelvis after the administration of intravenous contrast. Comparison is made to the prior CT dated 12/12/2015 Findings: The liver is enlarged measuring 21 cm. There is no sign of cirrhosis or significant fatty infiltration. There is a small 8 mm cyst in the inferior right hepatic lobe, increased in size. No liver mass lesion is seen. The portal vein is patent. The gallbladder appears unremarkable. No bile duct dilatation is noted. The spleen is of normal size. No focal splenic lesion is evident. The pancreas appears normal with no sign of acute or chronic pancreatitis and no mass lesion noted. The pancreatic duct is of normal caliber. There is an unchanged 4.2 cm right adrenal nodule and there is an unchanged 3.8 cm left adrenal nodule, likely benign adenomas No definite renal or proximal ureteral calculi are seen on this contrast-enhanced study. There is no hydronephrosis or perinephric stranding. No renal mass lesion is identified. There is a 2.5 cm left renal cyst The aorta is of normal caliber. No abdominal adenopathy is seen. There is a small hiatal hernia. There is no sign of small bowel obstruction. There is diverticulosis without definite diverticulitis. There is apparent mild diffuse wall thickening of the transverse colon, the hepatic flexure of the colon, and the descending colon. No free intraperitoneal fluid or air is identified. No distal ureteral or bladder calculi are seen. No bladder mass lesion is evident. The iliac arteries are of normal caliber. No pelvic adenopathy is noted. There are bilateral vasectomy clips The lungs bases appear clear. There are bilateral hip replacements, resulting in surrounding artifact. There is lumbar scoliosis and degenerative disc disease. No fracture is identified. No focal osseous lesion is seen Impression: 1. Unchanged bilateral adrenal nodules, likely benign adenomas 2. Hepatic and left renal cysts 3. Apparent mild colonic wall thickening, which could be due to infectious colitis or inflammatory bowel disease 4. Small hiatal hernia 5. Hepatomegaly 6. Diverticulosis without definite diverticulitis Electronically signed by Nav Harrison 06-01-2024 6:15 PM
[2024-06-01 18:23] LABS: Appearance Urine Clear (Clear); Bilirubin Urine Negative (Negative); Blood Urine Negative (Negative); Color Urine Dark Yellow; Glucose Urine UA Negative (Negative); Ketones Urine 1+ (Negative); Leukocyte Esterase Urine Negative (Negative); Nitrite Urine Negative (Negative); Protein Urine Negative (Negative); Specific Gravity Urine 1.017 (1.000-1.030); Urobilinogen Urine Negative (Negative)
[2024-06-01] MEDS: MECLIZINE HCL 25 MG TAB PO STA (18:32)
--- NOTE | 2024-06-01 19:21 | History & Physical Report ---
Date of Service June 01, 2024 Assessment & Plan (1) Nystagmus: (2) Ataxia: (3) Vertigo: (4) Gastroenteritis: Plan Assessment and plan: Gastroenteritis: Stool culture pending, A/P CT consistent with colitis Clear liquids, symptom management, IV fluids overnight Ataxia/nystagmusresolved: Stroke alert called, TNK offered which the patient denied Head CT/neck/head CTA unremarkable Consult neurology, check head MRI, check echo Lipid panel, check A1c, permissive hypertension Bradycardia: Unclear if this is chronic, QTc within normal limits Could be secondary to nausea/vomiting, replete K/mag Telemetry monitoring, check echo A total of 60 minutes was spent on chart review/facilitating plan of care/discussion with consultants/reviewing diagnostic data Full code DVT prophylaxis: Heparin subcu History of Present Illness Chief Complaint: Nausea/vomiting/diarrhea Primary Care Provider: Suzi Marie PA-C The patient is a 68-year-old male with no significant past medical history who presented to the ED on 06/01/2024 with complaints of nausea/vomiting/diarrhea that started this afternoon. The patient reports that around 2:30 PM, he began vomiting and was unable to stop so he called 911. He reports 1 bout of diar ady. He denies any abdominal pain/chest pain/shortness of breath. Per ER provider, on his exam, the patient had some ataxia and nystagmus when looking to the left and also had some bradycardia, unclear if bradycardia is new or chronic. Stroke alert was called at this time, neurology offered TNK which the patient declined. Routine stroke workup was recommended along with a baby aspirin daily. The patient's head/neck CTA were fairly unremarkable. Some stenosis -79% in the left ICA. Patient reports being at the chiropractor today around 12 PM prior to symptoms starting. Patient also reports being very active working in the barn and going up and down the steps. On exam, the patient's NIH was 0 and his neuro symptoms have completely resolved The patient's labs are fairly unremarkable. Bicarb 19, anion gap 13, likely secondary to dehydration, glucose 174 UA negative Chest x-ray negative Abdomen/pelvis CT showed mild colonic wall thickening, could be secondary to colitis/IBD, no other acute changes noted The patient will be admitted for stroke rule out and management of dehydration Allergies Allergy/AdvReac Type Severity Reaction Status Date / Time chlorhexidine Allergy Intermediate red itchy Verified 06/01/24 19:38 rash codeine Allergy Mild ITCHING Verified 06/01/24 19:38 Home Medications Medication Instructions Recorded Confirmed Type L.acid,par,plant,rham-B.anim,bif,brev,inf,long 1 cap PO DAILY 06/01/24 06/01/24 History 30 billion cell capsule ([facility]) melatonin 5 mg tablet 5 mg PO HS 06/01/24 06/01/24 History Past Med/Surg History Problem List (Updated 06/01/24 @ 19:28 by EDI Byrnes) Gastroenteritis Nystagmus (Acute) Ataxia (Acute) Stroke-like symptom (Acute) Vertigo (Acute) Diverticulosis (Chronic) Colitis (Acute) Degenerative joint disease of left hip Hand laceration (Acute) Hand laceration involving tendon (Acute) Family History Other No significant family history Social History Smoking Status: Current every day smoker Cigarettes Per Day: 10; Second Hand Exposure: No; Do You Dip or Chew Tobacco: No; Hx Alcohol Use: No Preferred Language: Georgian Communication Ability: Effective Bistro Server Required: No Beliefs That Will Affect Care: None Current Living Situation: Spouse Feels Safe at Home: Yes Assistive Devices: None Review of Systems Review of Systems: All systems reviewed & are unremarkable except as noted in HPI & below Physical Exam Constitutional: WD/WN, vitals as above Eyes: PERRL, conjunctivae normal, anicteric sclerae ENMT: external ear and nose normal, oropharynx normal Neck: trachea midline, no thyromegaly Respiratory: normal respiratory effort, lungs clear to auscultation Cardiovascular: RRR, no murmur, no edema Gastrointestinal (Abdomen): normal bowel sounds, soft, nontender, no hepatosplenomegaly Musculoskeletal: no cyanosis or clubbing, extremities motor strength 5/5 Skin: no rashes, warm and dry Neurologic: PERRL, EOMI, accommodation nl, no face palsy, no dysarthria Psychiatric: A+Ox3, euthymic affect Lymphatic: no cervical or axillary lymphadenopathy Results & Data Results & Data Vital Signs (Past 12 Hours) Vital Signs Pulse Pulse Resp BP BP Pulse Ox O2 Del Method 06/01/24 17:37 57 L 28 H 158/90 H 100 Room Air 06/01/24 17:16 43 L 06/01/24 17:05 Room Air 06/01/24 17:03 44 L 159/103 H 06/01/24 17:03 44 L 26 H 159/103 H 100 Room Air Diagnostic Findings Laboratory Results WBC 6.43 K/ul (4.8-10.8) 06/01/24 17:05 RBC 4.58 M/uL (4.70-6.10) L 06/01/24 17:05 Hgb 14.3 g/dl (14.0-18.0) 06/01/24 17:05 Hct 40.9 % (42.0-52.0) L 06/01/24 17:05 MCV 89.3 fL (80.0-100.0) 06/01/24 17:05 MCH 31.2 pg (25.0-34.0) 06/01/24 17:05 MCHC 35.0 g/dL (32.0-36.0) 06/01/24 17:05 RDW Std Deviation 40.7 fL (36.4-46.3) 06/01/24 17:05 RDW Coeff of Shannan 12.5 % (11.5-14.5) 06/01/24 17:05 Plt Count 224 K/uL (130-400) 06/01/24 17:05 MPV 9.4 fL (9.4-12.4) 06/01/24 17:05 Immature Gran % (Auto) 0.6 % 06/01/24 17:05 Neut % (Auto) 78.3 % 06/01/24 17:05 Lymph % (Auto) 13.8 % 06/01/24 17:05 Sanders % (Auto) 5.9 % 06/01/24 17:05 Eos % (Auto) 0.8 % 06/01/24 17:05 Baso % (Auto) 0.6 % 06/01/24 17:05 Neut # (Auto) 5.03 K/uL (1.40-6.50) 06/01/24 17:05 Lymph # (Auto) 0.89 K/uL (1.20-3.40) L 06/01/24 17:05 Sanders # (Auto) 0.38 K/uL (0.11-0.59) 06/01/24 17:05 Eos # (Auto) 0.05 K/uL (0.00-0.50) 06/01/24 17:05 Baso # (Auto) 0.04 K/uL (0.00-0.20) 06/01/24 17:05 Immature Gran # (Auto) 0.04 K/uL (0.01-0.20) 06/01/24 17:05 Sodium 138 mmol/L (136-145) 06/01/24 17:05 Potassium 3.6 mmol/L (3.5-5.1) 06/01/24 17:05 Chloride 106 mmol/L (98-107) 06/01/24 17:05 Carbon Dioxide 19 mmol/L (21-32) L 06/01/24 17:05 Anion Gap 13 (3-11) H 06/01/24 17:05 BUN 15 mg/dl (6-23) 06/01/24 17:05 Creatinine 0.77 mg/dl (0.6-1.4) 06/01/24 17:05 Est Cr Clr Drug Dosing 100.9 ml/min 06/01/24 17:05 eGFR 96.31 06/01/24 17:05 BUN/Creatinine Ratio 19.5 (10-20) 06/01/24 17:05 Glucose 174 mg/dl (70-99(Fasting)) H 06/01/24 17:05 Calcium 9.6 mg/dl (8.6-10.3) 06/01/24 17:05 Total Bilirubin 0.5 mg/dl (0.2-1.0) 06/01/24 17:05 AST 20 U/L (13-39) 06/01/24 17:05 ALT 14 U/L (7-52) 06/01/24 17:05 Alkaline Phosphatase 66 U/L (34-104) 06/01/24 17:05 Troponin I High Sens 3.8 pg/ml (0-20) 06/01/24 17:05 Total Protein 6.8 gm/dl (6.0-8.3) 06/01/24 17:05 Albumin 4.4 gm/dl (3.4-5.0) 06/01/24 17:05 Globulin 2.4 gm/dl (2.5-4.0) L 06/01/24 17:05 Albumin/Globulin Ratio 1.8 (0.9-2) 06/01/24 17:05 Lipase 11 U/L (11-82) 06/01/24 17:05 Urine Color Dark Yellow 06/01/24 18:00 Urine Appearance Clear (Clear) 06/01/24 18:00 Urine pH 7.0 (4.5-7.5) 06/01/24 18:00 Ur Specific Secretary 1.017 (1.000-1.030) 06/01/24 18:00 Urine Protein Negative (Negative) 06/01/24 18:00 Urine Glucose (UA) Negative (Negative) 06/01/24 18:00 Urine Ketones 1+ (Negative) H 06/01/24 18:00 Urine Blood Negative (Negative) 06/01/24 18:00 Urine Nitrite Negative (Negative) 06/01/24 18:00 Urine Bilirubin Negative (Negative) 06/01/24 18:00 Urine Urobilinogen Negative (Negative) 06/01/24 18:00 Ur Leukocyte Esterase Negative (Negative) 06/01/24 18:00 Impressions Abdomen/Pelvis CT 06/01/24 17:05 Clinical History: Abdominal pain Technique: Axial computed tomography images were obtained of the abdomen and pelvis after the administration of intravenous contrast. Comparison is made to the prior CT dated 12/12/2015 Findings: The liver is enlarged measuring 21 cm. There is no sign of cirrhosis or significant fatty infiltration. There is a small 8 mm cyst in the inferior right hepatic lobe, increased in size. No liver mass lesion is seen. The portal vein is patent. The gallbladder appears unremarkable. No bile duct dilatation is noted. The spleen is of normal size. No focal splenic lesion is evident. The pancreas appears normal with no sign of acute or chronic pancreatitis and no mass lesion noted. The pancreatic duct is of normal caliber. There is an unchanged 4.2 cm right adrenal nodule and there is an unchanged 3.8 cm left adrenal nodule, likely benign adenomas No definite renal or proximal ureteral calculi are seen on this contrast-enhanced study. There is no hydronephrosis or perinephric stranding. No renal mass lesion is identified. There is a 2.5 cm left renal cyst The aorta is of normal caliber. No abdominal adenopathy is seen. There is a small hiatal hernia. There is no sign of small bowel obstruction. There is diverticulosis without definite diverticulitis. There is apparent mild diffuse wall thickening of the transverse colon, the hepatic flexure of the colon, and the descending colon. No free intraperitoneal fluid or air is identified. No distal ureteral or bladder calculi are seen. No bladder mass lesion is evident. The iliac arteries are of normal caliber. No pelvic adenopathy is noted. There are bilateral vasectomy clips The lungs bases appear clear. There are bilateral hip replacements, resulting in surrounding artifact. There is lumbar scoliosis and degenerative disc disease. No fracture is identified. No focal osseous lesion is seen Impression: 1. Unchanged bilateral adrenal nodules, likely benign adenomas 2. Hepatic and left renal cysts 3. Apparent mild colonic wall thickening, which could be due to infectious colitis or inflammatory bowel disease 4. Small hiatal hernia 5. Hepatomegaly 6. Diverticulosis without definite diverticulitis Electronically signed by Nav Harrison 06-01-2024 6:15 PM Chest X-Ray 06/01/24 17:05 INDICATION: Cough. TECHNIQUE: Frontal radiograph of the chest. COMPARISON: None. FINDINGS: Mild cardiomegaly. Pulmonary vasculature appear within normal limits. Chronic appearing interstitial lung markings. No infiltrate, pleural effusion or pneumothorax. No acute osseous abnormality evident. Moderate degenerative changes in the shoulders. IMPRESSION: No acute cardiopulmonary process. Electronically signed by Jose Antonio Davis 06-01-2024 5:[address] 06/01/24 17:31 Clinical History: Possible stroke Technique: Axial computed tomography images were obtained of the brain without intravenous contrast. Findings: There is mild cerebral atrophy, within expected limits for the patient's age. Areas of decreased attenuation are seen within the periventricular white matter, likely representing chronic small vessel ischemic disease. There is no definite sign of acute or old infarction. No intracranial hemorrhage is evident. No definite mass lesion is seen on this noncontrast examination. There is no midline shift or other form of herniation. No hydrocephalus is seen. No fracture is identified. The orbits and the visualized paranasal sinuses appear unremarkable. The mastoid air cells appear clear. Impression: 1. Cerebral atrophy and chronic small vessel ischemic disease 2. Otherwise unremarkable noncontrast CT of the brain These findings were discussed with Dr Busby at 6:05 PM on 06/01/2024 Electronically signed by Nav Harrison 06-01-2024 6:05 PM Head CTA 06/01/24 17:36 Technique: Axial computed tomography images were obtained of the brain after the administration of intravenous contrast according to the CT angiogram protocol Findings: There is calcified plaque within the cavernous and supraclinoid segments of the internal carotid arteries bilaterally No definite stenosis or aneurysm is seen of the anterior, middle, or posterior cerebral artery circulations. The visualized vertebral arteries and the basilar artery appear unremarkable Impression: No definite stenosis or aneurysm of the intracranial arteries Electronically signed by Nav Harrison 06-01-2024 6:09 PM Neck CTA 06/01/24 17:36 Technique: Axial computed tomography images were obtained of the neck after the administration of intravenous contrast according to the CT angiogram protocol Findings: No stenosis is seen in the common carotid arteries bilaterally. There is plaque within the carotid bulbs bilaterally, with less than 30% diameter narrowing. There is a mild 30-40% diameter stenosis of the proximal left internal carotid artery. No stenosis of the external carotid arteries is seen The vertebral arteries are patent bilaterally with no significant stenosis seen. The visualized thoracic aorta appears unremarkable There is multilevel degenerative disc disease and osteoarthritis of the cervical spine. There is emphysema. There is a 3 mm nodule in the left lung apex Impression: 1. Mild stenosis of the proximal left ICA, with 30-40% diameter narrowing 2. Emphysema and small indeterminate nodule in the left lung apex. A follow-up chest CT could be obtained Electronically signed by Nav Harrison 06-01-2024 6:08 PM Supervising Physician Co-Signing Physician Notes Pt seen and examined by me, care coordinated w/ T. EDI Walters, pls refer to her note above for further detail. 68 yo M with no significant past medical history who presented to the ED on 06/01/2024 with complaints of nausea/vomiting/diarrhea that started this afternoon. The patient reports he felt well this AM, and had normal stool. Around noon went to chiropracter and had "adjustments' done. He said he did not mention this to anyone in ER as he did not think it was important and he gets them regularly. Pt's is also present at the bedside and helps with history. After that he had nausea, he ate lunch though but vomitted multiple times. Also had a loose stool. Received zofran on route. Per ER provider, on his exam, the patient had some ataxia and nystagmus when looking to the left and also had some bradycardia, unclear if bradycardia is new or chronic. Stroke alert was called and neurology offered TNK which the patient declined. Routine stroke workup was recommended along with a baby aspirin daily. The patient's head/neck CTA were fairly unremarkable. Some stenosis [id number]% in the left ICA. labs in ED Bicarb 19, anion gap 13, likely secondary to dehydration Abdomen/pelvis CT showed mild colonic wall thickening, could be secondary to colitis/IBD, no other acute changes noted Pt is currently sitting up in bed in NAD, however reports ongoing nausea. present at the bedside. pt is awake, alert , able to answer questions appropriately. Lungs CTAB, heart sounds regular. Abdomen soft, nontender. Pt is moving extremities and no weakness noted on exam. No facial asymmetry, speech fluent, no nystagmus noted. Stroke work up ordered, including brain MRI and neurology consult. Stool pcr ordered. Gentle IVF. MD Horace
[2024-06-01] MEDS: ONDANSETRON INJ 2 MG/ML 2 ML VIAL IV PRN (19:36)
[2024-06-01] MEDS: POTASSIUM CHLORIDE / WTR 10 MEQ/100 ML PLCT IV SCH (19:40)
[2024-06-01 19:43] LABS: Magnesium 1.9 mg/dl (1.7-2.4); Potassium 3.2 mmol/L (3.5-5.1)
[2024-06-01] MEDS: SODIUM CHLORIDE 0.9% 1,000 ML IV SCH (20:44)
--- NOTE | 2024-06-01 23:46 | Magnetic Resonance Report ---
Exam(s): MRI HEAD Without Contrast EXAM: MR Head Without Intravenous Contrast CLINICAL HISTORY: Reason for exam: r/o cva. TECHNIQUE: Magnetic resonance images of the head/brain without intravenous contrast in multiple planes. COMPARISON: Head CT 06/01/2024. FINDINGS: Brain: Unremarkable. No mass. No hemorrhage. No acute infarct. Ventricles: Unremarkable. No ventriculomegaly. Bones/joints: Unremarkable. No acute fracture. Sinuses: Unremarkable as visualized. No acute sinusitis. Mastoid air cells: Unremarkable as visualized. No mastoid effusion. Orbits: Unremarkable as visualized. IMPRESSION: No acute intracranial abnormality. Electronically signed by: Dean Yarbrough MD 06/01/24 23:45 PM
[2024-06-02 06:44] LABS: Basophils # (auto) 0.02 K/uL (0.00-0.20); Basophils % (auto) 0.2 %; Eosinophils # (auto) 0.02 K/uL (0.00-0.50); Eosinophils % (auto) 0.2 %; Hematocrit (blood only) 38.9 % (42.0-52.0); Hemoglobin 13.6 g/dl (14.0-18.0); Immature Granulocytes # (auto) 0.04 K/uL (0.01-0.20); Immature Granulocytes % (auto) 0.5 %; Lymphocytes # (auto) 1.42 K/uL (1.20-3.40); Lymphocytes % (auto) 17.3 %; Mean Corpuscular Hemoglobin 31.7 pg (25.0-34.0); Mean Corpuscular Volume 90.7 fL (80.0-100.0); Mean Platelet Volume 9.5 fL (9.4-12.4); Monocytes # (auto) 0.71 K/uL (0.11-0.59); Monocytes % (auto) 8.7 %; Neutrophils # (auto) 5.99 K/uL (1.40-6.50); Neutrophils % (auto) 73.1 %; Platelet Count 217 K/uL (130-400); RDW Coefficient of Variation 12.7 % (11.5-14.5); Red Blood Count 4.29 M/uL (4.70-6.10)
[2024-06-02 07:06] LABS: Estimated Average Glucose 108 mg/dl; Hemoglobin A1C 5.4 % (4.5-5.6)
[2024-06-02 07:08] LABS: Albumin Globulin Ratio 2.2 (0.9-2); BUN Creatinine Ratio 15.4 (10-20); Bilirubin,Total 0.4 mg/dl (0.2-1.0); Calcium 8.9 mg/dl (8.6-10.3); Chol HDL Ratio 4.2 (0-5); Creatinine Clr Calc Pharmacy 119.5 ml/min; Globulin 1.8 gm/dl (2.5-4.0); Potassium 3.8 mmol/L (3.5-5.1); Total Protein 5.8 gm/dl (6.0-8.3)
[2024-06-02] MEDS: ASPIRIN 81 MG ECTAB PO SCH (08:31)
--- NOTE | 2024-06-02 10:24 | Neurology Consultation ---
Date of Consultation June 02, 2024 Assessment & Plan (1) Vertigo: Patient presents for acute onsent vertigo, nausea, dizziness. Negative MRI rules out stroke and makes this episode likely peripheral in nature. He reports longstanding history of tinnitus and hearing loss and one other episode of vertigo 2019. Ddx could include vestibular neuritis although he denies any preceding flu-like illness. Plan -- No further neurologic work-up -- Consider Outpatient ENT referral -- PT/OT -- If patient remains symptomatic can consider medrol dose pack in case of vestivbular neuritis -- Can treat symptomatically Telehealth Consultation Telehealth Information Telehealth Information: I performed this visit using a real-time telehealth connection between my loca tion and the patients location ([facility]). After connecting through interactive tele-video, patient was identified by name and date of and/or wristband check.Patient (or authorized healthcare insurance claim representative) was informed that this was a telemedicine visit and it was being conducted confidentially over secure lines. My office door was closed and no one else was present in the room with me.Patient (or authorized healthcare insurance claim representative) provided consent to proceed with the visit, expressed an understanding of privacy and security of the telemedicine visit, and gave permission to have a hospital insurance claim representative in the room in order to assist with the visit and to conduct portions of the visit, as needed. I informed the patient (or authorized healthcare insurance claim representative) that I reviewed their record and presented the opportunity for them to ask any questions regarding the visit today. The patient agreed to participate. History of Present Illness Reason for Consultation: vertigo Attending Physician: Daniella Valle MD History of Present Illness Patient states that yesterday he was in his usual state of health when he suddenly became extremely nauseous with projectile vomitting and a room spinning sensation. He believes this lasted at least an hour. Upon presentation initial storke work-up negative, offered TNK which pt declined. Speaking to him today, he states he feels much improved. States he had one similar episode in 2019. Does have hearing loss and ear ringing sensation. Denies any preceding viral/flu like illness, any provocation by head movement. Denies aphasia, dysarthria or double vision during episode. No fevers, chills. Allergies Allergy/AdvReac Type Severity Reaction Status Date / Time chlorhexidine Allergy Intermediate red itchy Verified 06/01/24 19:38 rash codeine Allergy Mild ITCHING Verified 06/01/24 19:38 Home Medications Medication Instructions Recorded Confirmed Type L.acid,par,plant,rham-B.anim,bif,brev,inf,long 1 cap PO DAILY 06/01/24 06/01/24 History 30 billion cell capsule ([facility]) melatonin 5 mg tablet 5 mg PO HS 06/01/24 06/01/24 History Patient History Family History Other No significant family history Social History Smoking Status: Current every day smoker Tobacco Type: Cigarettes Cigarettes Per Day: 1/2 pack a day; Second Hand Exposure: No; Do You Dip or Chew Tobacco: No; Hx Alcohol Use: No Hx Substance Use: No Preferred Language: Slovenian Communication Ability: Effective Machine Candle Molder Required: No Beliefs That Will Affect Care: None Current Living Situation: Spouse Other Information That Helps Us Care for You: No Feels Safe at Home: Yes Safety Concerns: Feels Safe At This Time Assistive Devices: Glasses and Hearing Aid - Left Review of Systems negative aside from HPI Physical Exam Pt seen restisng comfortably in bed. Fully conversational, able to follow simple and complex commands and answer all questions appropriately. No dysarthria or aphasia. Gaze midline, no nystagmus, no facial droop. Able to hold all extremities against gravity, No ataxia in FTN. Results & Data Vital Signs (Past 12 Hours) Vital Signs Temp Pulse Pulse Resp BP Pulse Ox O2 Del Method 06/02/24 07:51 36.5 C 77 18 120/72 99 Room Air 06/02/24 07:16 69 06/02/24 03:00 36.6 C 61 17 119/61 98 Room Air Laboratory Results per chart Diagnostic Findings MRI Brain 06/02/24: No acute findings CTA H/N 06/01/24: No large vessel occlusion or significant stenosis Medications Administered Per MAR
[2024-06-02 10:39] VITALS: O2SAT 95
--- NOTE | 2024-06-02 13:36 | Discharge Summary ---
Date of Service June 02, 2024 Admission HPI Per Admitting Provider The patient is a 68-year-old male with no significant past medical history who presented to the ED on 06/01/2024 with complaints of nausea/vomiting/diarrhea that started this afternoon. The patient reports that around 2:30 PM, he began vomiting and was unable to stop so he called 911. He reports 1 bout of diarrhea. He denies any abdominal pain/chest pain/shortness of breath. Per ER provider, on his exam, the patient had some ataxia and nystagmus when looking to the left and also had some bradycardia, unclear if bradycardia is new or chronic. Stroke alert was called at this time, neurology offered TNK which the patient declined. Routine stroke workup was recommended along with a baby aspirin daily. The patient's head/neck CTA were fairly unremarkable. Some stenosis [id number]% in the left ICA. Patient reports being at the chiropractor today around 12 PM prior to symptoms starting. Patient also reports being very active working in the barn and going up and down the steps. On exam, the patient's NIH was 0 and his neuro symptoms have completely resolved The patient's labs are fairly unremarkable. Bicarb 19, anion gap 13, likely secondary to dehydration, glucose 174 UA negative Chest x-ray negative Abdomen/pelvis CT showed mild colonic wall thickening, could be secondary to colitis/IBD, no other acute changes noted The patient will be admitted for stroke rule out and management of dehydration Admission Exam Per Admitting Provider Constitutional: WD/WN, vitals as above Eyes: PERRL, conjunctivae normal, anicteric sclerae ENMT: external ear and nose normal, oropharynx normal Neck: trachea midline, no thyromegaly Respiratory: normal respiratory effort, lungs clear to auscultation Cardiovascular: RRR, no murmur, no edema Gastrointestinal (Abdomen): normal bowel sounds, soft, nontender, no hepatosplenomegaly Musculoskeletal: no cyanosis or clubbing, extremities motor strength 5/5 Skin: no rashes, warm and dry Neurologic: PERRL, EOMI, accommodation nl, no face palsy, no dysarthria Psychiatric: A+Ox3, euthymic affect Lymphatic: no cervical or axillary lymphadenopathy Principal Diagnosis Vertigo Mild left internal carotid stenosis Discharge Exam Constitutional + well hydrated; no acute distress Eyes PERRL, conjunctivae normal, anicteric sclerae ENMT external ear and nose normal, oropharynx normal Respiratory normal respiratory effort, lungs clear to auscultation Cardiovascular Rate/Rhythm: regular rate and regular rhythm Gastrointestinal (Abdomen) normal bowel sounds, soft, nontender, no hepatosplenomegaly Musculoskeletal no cyanosis or clubbing, extremities motor strength 5/5 No pedal edema Neurologic PERRL, EOMI, accommodation nl, no face palsy, no dysarthria Psychiatric A+Ox3, euthymic affect Discharge Data Allergies Allergy/AdvReac Type Severity Reaction Status Date / Time chlorhexidine Allergy Intermediate red itchy Verified 06/01/24 19:38 rash codeine Allergy Mild ITCHING Verified 06/01/24 19:38 Consultations 06/01/24 18:49 ED Decision to Admit Stat 06/01/24 19:21 Consult Neurology Routine Ordered Studies 06/01/24 17:05 CT abd pelvis IV con only Stat 06/01/24 17:31 CT head/brain wo con Stat 06/01/24 17:36 CT angio head w con Stat CT angio neck with con Stat 06/01/24 20:34 MR brain wo con Routine Hospital Course (1) Nystagmus: (2) Ataxia: (3) Vertigo: (4) Gastroenteritis: Plan Gastroenteritis: CT Abd/Pelvis noted mild colonic wall thickening. Possibly colitis Symptoms all resolved Vertigo Stroke alert was called on admission TNK offered which the patient denied Head CT/head CTA unremarkable Neck CTA noted mild proximal Left ICA 30-40% narrowing MRI brain did not show any acute abnormalities Neurology evaluated and recommended outpatient ENT referral, no further neurologic workup. If patient remains symptomatic can consider medrol dose pack for possible vestibular neuritis. All symptoms are currently resolved. Patient noted he will follow up with his PCP Patient counseled to quit smoking His ASCVD risk is 18.8% Patient declined starting statin at this time Encouraged to follow up with PCP and discuss further Total Time Total Time Spent Total Time Spent (In Minutes): 45 Total Time Includes: Examination of the Patient, Discharge Planning and Medication Reconciliation Discharge Plan Discharge Items Patient Disposition: Home - Self-Care Reason For Visit: Nausea, vomiting Discharge Diagnosis: Vertigo Mild left internal carotid stenosis Activity: Resume your previous activity Non-emergency contact: Primary Care Provider Call non-emergency contact if: you have any medication questions Follow-up/Referrals: Suzi Marie PA-C [Primary Care Provider] - ([facility]. Please reach out if you have not heard from them. Thank you.) Diet: Heart Healthy Addtl Attending Provider Instructions: Mr Wong You came to the hospital with nausea, vomiting and vertigo. You were extensively evaluated All symptoms are currently resolved. Please ensure follow up with your Primary Doctor as well as ENT Doctor. It was a pleasure taking care of you Pending Studies at Discharge: Yes (Echo result) Stand-Alone Forms: My [facility] Associated Material Processing, Smoking Cessation Medications and DC Order Prescriptions: Continued melatonin 5 mg Tablet 5 mg PO HS Probiotic Digestive Health 30 billion cell Capsule 1 cap PO DAILY Admission Data Admit Date/Time: 06/01/24 18:50 Attending Provider: Daniella Valle I. Admit Provider: Kodi Vu Primary Care Provider: Suzi Marie Other Providers: Kodi Vu; Luz Bar
[2024-06-02 15:18] VITALS: BP 122/68; RESP 18; TEMP 98.1
--- NOTE | 2024-06-02 15:37 | Communication Note ---
Date of Service: June 02, 2024 Code 44 attestation: By CMS guidelines, a determination that the admission or continued stay is not medically necessary has been made by a member of the UR committee and a physician for this hospital stay, therefore a Code 44 will be completed and the Inpatient admission will be changed to outpatient. Dr Felix Escoto Member UR Committee
[2024-06-02 15:58] VITALS: PULSE 74
--- NOTE | 2024-06-03 21:49 | Electrocardiogram Report ---
Test Reason : Blood Pressure : */* mmHG Vent. Rate : 48 BPM Atrial Rate : 48 BPM P-R Int : 254 ms QRS Dur : 106 ms QT Int : 520 ms P-R-T Axes : 53 67 92 degrees QTcB Int : 464 ms Sinus bradycardia with 1st degree A-V block Nonspecific T wave abnormality When compared with ECG of 13-Dec-2018 11:28, MT interval has increased Vent. rate has decreased by 23 bpm Nonspecific T wave abnormality now evident in Lateral leads QT has lengthened Confirmed by John Shankar ([id number]) on 06/03/2024 9:49:16 PM Referred By: REFERRED SELF Confirmed By: John Shankar
--- NOTE | 2024-06-03 21:50 | Electrocardiogram Report ---
Test Reason : Blood Pressure : */* mmHG Vent. Rate : 64 BPM Atrial Rate : 64 BPM P-R Int : 202 ms QRS Dur : 100 ms QT Int : 410 ms P-R-T Axes : 37 53 72 degrees QTcB Int : 422 ms Normal sinus rhythm Normal ECG When compared with ECG of 01-Jun-2024 17:34, MT interval has decreased Confirmed by John Shankar ([id number]) on 06/03/2024 9:49:39 PM Referred By: REFERRED SELF Confirmed By: John Shankar
== END 2024-06-02 17:11 | disposition home or self-care (01) | DRG 149 ==
LOC: ED 17:00 → INTOOBSV 18:50 → SUATTDRO 18:50 → EDINP 18:50 → 2S 21:53